=== PATIENT | female | born 1970 | race Caucasian/White ===

== ENCOUNTER 2017-11-28 12:02 | Inpatient (IN) | payer MEDICAID, MEDICARE ==
[~2017-11-28 12:02] MED LIST: BUPIVACAINE HCL 50 ML VIAL IJ ONE; LIDOCAINE HCL 20 ML VIAL IJ ONE
--- NOTE | 2017-11-28 12:37 | ANES ---
Anesthesia Pre Procedure Eval Vitals/Labs: Last Vital Signs Temp 37.2 C 11/28/17 12:00 Pulse 88 11/28/17 12:00 Resp 20 11/28/17 12:00 BP 118/55 11/28/17 12:00 Pulse Ox 99 11/28/17 12:00 HOME MEDICATIONS Sulfamethoxazole/Trimethoprim [Bactrim Ds] 1 tab PO BID #20 tab 11/25/17 [Last Taken 11/27/17] hydrocodone 5 mg-acetaminophen 325 mg tablet 1 tab PO TID-QID PRN #30 tab [Last Taken 11/27/17] atorvastatin 80 mg tablet 80 mg PO DAILY 11/27/17 [Last Taken 11/27/17] buspirone 15 mg tablet 15 mg PO BID 11/27/17 [Last Taken 11/27/17] duloxetine 60 mg capsule,delayed release 60 mg PO BID 11/27/17 [Last Taken 11/14] gabapentin 300 mg capsule 300 mg PO TID 11/27/17 [Last Taken 11/27/17] insulin aspart U-100 100 unit/mL subcutaneous pen 1 unit SUB-Q ACHS ml [Last Taken 11/27/17] insulin detemir (U-100) 100 unit/mL (3 mL) subcutaneous pen 40 unit SUB-Q DAILY 11/27/17 [Last Taken 11/27/17] insulin detemir (U-100) 100 unit/mL (3 mL) subcutaneous pen 60 unit SUB-Q QPM [Last Taken 11/27/17] lisinopril 2.5 mg tablet 2.5 mg PO DAILY 11/27/17 [Last Taken 11/27/17] omeprazole 10 mg capsule,delayed release 10 mg PO DAILY 11/27/17 [Last Taken ] Allergies/Adverse Reactions: Allergies Allergy/AdvReac Type Severity Reaction Status Date / Time cefaclor [From [facility]] Allergy Hives Verified 11/28/17 12:13 - Planned Procedure Medication List Reviewed:: Yes Allergies Verified: Yes Medical History (Last Reviewed 11/28/17 @ 12:36 by Khadar Nava CRNA) Gastroesophageal reflux disease (Chronic) Depression (Chronic) Anxiety (Chronic) History of MA (myocardial infarction) (Resolved) Anemia (Acute) Diabetes (Chronic) Peripheral neuropathy (Chronic) Diabetes 1.5, managed as type 1 History of depression History of hypercholesterolemia Hx of gastroesophageal reflux (GERD) Hx of myocardial infarction Surgical History (Last Reviewed 11/28/17 @ 12:36 by Khadar Nava CRNA) 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 Hx of section Hx of tubal ligation History of bilateral carpal tunnel release (Inactive) Hx of heart artery stent (Inactive) Family History (Last Reviewed 11/28/17 @ 12:36 by Khadar Nava CRNA) Father COPD (chronic obstructive pulmonary disease) Diabetes Heart disease Mother COPD (chronic obstructive pulmonary disease) Diabetes Heart disease - Family Anesthesia History Family History:: no untoward family reactions to anesthesia - Airway/Neck/Teeth Teeth Condition: Intact Denture Type: None Neck Exam: non-tender, full range of motion, normal alignment, normal inspection Mallampatti Score: 2 Thyromental (T-M) distance: > 6 cm Mandibulo Hyoid distance: > 3 cm - Respiratory Respiratory: lungs clear, normal breath sounds, no respiratory distress Smoking Status: Never smoker Sleep Apnea currently treated: No Sleep Apnea by current assessment: No - Cardiovascular Patient History - Cardiac/Respiratory: Myocardial Infarction Tolerates Activity: Fair Heart Sounds: S1 & S2, Regular - Anesthesia Assessment and Plan ASA Class: PS, III Anesthesia Type Plan: MAC Planned difficult intubation/equipment available: No
[2017-11-28] MEDS: RINGER'S SOLUTION,LACTATED 1,000 ML IV PRN ×2 (13:10→15:30)
[2017-11-28] MEDS ORDERED: LIDOCAINE HCL IJ ONE (13:57)
[2017-11-28] MEDS ORDERED: VANCOMYCIN HCL 1 GM in DEXTROSE 5 % IN WATER 250 ML IV ONE ×2 (14:00)
--- NOTE | 2017-11-28 14:54 | ANES ---
Post Anesthesia Discharge - Transfer of Care Transfer of Care handoff given to nurse: Yes - Anesthesia Post Op Note Anesthesia Post Op Note: Care transferred to RN on med-surg
--- NOTE | 2017-11-28 14:55 | ANES ---
Post Anesthesia Assessment - Vital Signs Vitals: Last Vital Signs Temp 37.2 C 11/28/17 12:00 Pulse 88 11/28/17 12:00 Resp 20 11/28/17 12:00 BP 118/55 11/28/17 12:00 Pulse Ox 99 11/28/17 12:00 Airway Patency: Normal - Mental Status Level Of Consciousness: Awake - Pain Level Pain Score: 0 - N/V Assessment Nausea/Vomiting Presence: None Dehydration:: No
[2017-11-28] MEDS: HYDROcodone/ACETAMINOPHEN 1 EACH TABLET PO PRN ×2 (15:47→21:11)
[2017-11-28] MEDS ORDERED: VANCOMYCIN HCL 1 GM in DEXTROSE 5 % IN WATER 250 ML IV SCH ×2 (18:00)
[2017-11-28] MEDS ORDERED: GLUCAGON,HUMAN RECOMBINANT 1 MG VIAL IV PRN (19:17)
[2017-11-28] MEDS ORDERED: INSULIN DETEMIR 100 UNITS/ML VIAL SC SCH (21:00)
[2017-11-28] MEDS ORDERED: GABAPENTIN 300 MG CAPSULE PO SCH (21:00)
[2017-11-28] MEDS: DULoxetine HCL 30 MG CAPSULE.SA PO SCH (21:10)
[2017-11-28] MEDS: busPIRone HCL 5 MG TABLET PO SCH (21:10)
[2017-11-28] MEDS: SACCHAROMYCES BOULARDII 250 MG CAPSULE PO SCH (21:10)
[2017-11-28] MEDS: INSULIN LISPRO 100 UNITS/ML VIAL SC SCH (21:24)
--- NOTE | 2017-11-28 22:19 | HP ---
Chief Complaint - Chief Complaint Date of Service: 11/28/17 Time of Service: 18:00 Chief Complaint: foot infection History of Present Illness: 47 yo female admitted to the med/surg floor for Dr. Ramirez following surgical debridement of her right 5th toe and surrounding tissue for osteomyelitis. Patient has a hx of poorly controlled insulin dependent DM, currently on a long and short acting insulin (she is unsure of her regimen currently). Surgery went well and she states that her pain is well controlled. She is on vanc for MRSA tx (Cultures 5 days ago +). Currently she is comfortable and has no concerns. She is to be here for the next 48 hours for IV abx, she will then be transitioned home or orals after sensitivities return from the cultures. Her VS are stable. 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 Smoking Status Never smoker Have you smoked in the past 12 No months Do you dip or chew tobacco No Review Of Systems (GEN) - Review of Systems Generalized/Overall Review: Present: No Symptoms Reported EENTM: Present: No Symptoms Reported Respiratory: Present: No Symptoms Reported Cardiac: Present: No Symptoms Reported Abdominal: Present: No Symptoms Reported Genitourinary: Present: No Symptoms Reported Musculoskeletal: Present: Other - right foot pain, minimal currently Neurological: Present: No Symptoms Reported Skin: Present: No Symptoms Reported - Unsure if there is a surrounding cellulitis due to wrapping. Endocrine: Present: No Symptoms Reported Immunizations: IMMUNIZATION HX Immunizations Up to Date Yes Allergies/Adverse Reactions: Allergies Allergy/AdvReac Type Severity Reaction Status Date / Time cefaclor [From [facility]] Allergy Hives Verified 11/28/17 12:13 Home Medications: HOME MEDICATIONS Sulfamethoxazole/Trimethoprim [Bactrim Ds] 1 tab PO BID #20 tab 11/25/17 [Last Taken 11/26/17] hydrocodone 5 mg-acetaminophen 325 mg tablet 1 tab PO TID-QID PRN #30 tab [Last Taken Unknown] atorvastatin 80 mg tablet 80 mg PO DAILY 11/27/17 [Last Taken Unknown] buspirone 15 mg tablet 15 mg PO BID 11/27/17 [Last Taken Unknown] duloxetine 60 mg capsule,delayed release 60 mg PO BID 11/27/17 [Last Taken Unknown] gabapentin 300 mg capsule 300 mg PO BID 11/27/17 [Last Taken 11/27/17] insulin aspart U-100 100 unit/mL subcutaneous pen 1 unit SUB-Q ACHS ml [Last Taken Unknown] insulin detemir (U-100) 100 unit/mL (3 mL) subcutaneous pen 40 unit SUB-Q DAILY 11/27/17 [Last Taken Unknown] insulin detemir (U-100) 100 unit/mL (3 mL) subcutaneous pen 60 unit SUB-Q QPM [Last Taken Unknown] lisinopril 2.5 mg tablet 2.5 mg PO DAILY 11/27/17 [Last Taken Unknown] omeprazole 10 mg capsule,delayed release 10 mg PO DAILY 11/27/17 [Last Taken Unknown] Gabapentin 600 mg PO HS 11/28/17 [Last Taken Unknown] Exam - Exam Vital Signs: Vital Signs - Last Taken Temp 36.5 C 11/28/17 15:35 Pulse 86 11/28/17 17:49 Resp 20 11/28/17 17:49 BP 105/53 11/28/17 17:49 Pulse Ox 97 11/28/17 17:49 Constitutional: Present: Alert, Oriented x3, Cooperative Neck: Present: non-tender, supple Back Exam: Present: normal inspection, no CVA tenderness Respiratory: Present: chest non-tender, lungs clear, normal breath sounds, no respiratory distress Cardiovascular/Chest: Present: normal peripheral pulses, regular rate, rhythm, no chest tenderness, edema - right foot to just above her ankle Abdomen: Present: Normal bowel sounds, soft /Rectal: Present: Exam deferred Skin Exam: Present: normal color Appearance: Present: appropriate appearance, appropriate insight Eye contact: Present: cooperative, good eye contact Thoughts: Present: normal thought pattern, normal mood /affect Assessment/Plan - Assessment/Plan (1) Osteomyelitis Assessment: Patient on 1 gr Vanco q 12 hrs. Vanc trough to be ordered 1 hr prior to 4th dose. Awaiting cultures from surgery. SCDs ordered. CBC in the am Problem: Acute Qualifiers: Osteomyelitis location: foot Laterality: right Qualified Code(s): M86.9 - Osteomyelitis, unspecified (2) Insulin dependent diabetes mellitus Assessment: Resume long acting insulin. 10 units short acting insulin with meals, Moderate sliding scale insulin to be given ACHS (with BS monitoring). Moderate sliding scale insulin ordered. Glucagon to be given if BS drops below 50. Doc to be notified if BS drops below 70. Consistent carb diet Problem: Acute (3) Depression Assessment: restart home meds. patient states that it is well controlled Problem: Chronic Qualifiers: Depression Type: major depressive disorder Major depression recurrence: recurrent Active/Remission status: currently active Major depression episode severity: unspecified Qualified Code(s): F33.9 - Major depressive disorder, recurrent, unspecified (4) Anxiety Assessment: restart home meds. patient states that it is well controlled Problem: Chronic (5) Peripheral neuropathy Assessment: restart gabapentin Problem: Chronic Qualifiers: Peripheral neuropathy type: polyneuropathy associated with underlying disease Qualified Code(s): G63 - Polyneuropathy in diseases classified elsewhere
[2017-11-29] MEDS: VANCOMYCIN HCL 1 GM in DEXTROSE 5 % IN WATER 250 ML IV SCH ×4 (05:29→16:35)
[2017-11-29 05:45] LABS: Mean Corpuscular Hemoglobin 25.3 pg (27-31); Mean Corpuscular Hgb Conc 30.2 g/dl (32-36); Mean Platelet Volume 10.1 fl (8-12.5); Neutrophil # 7.1 K/mm3 (1.3-6.0); Neutrophil % 72.3 % (42-75.0); Platelet Count 256 K/mm3 (150-450); Red Blood Count 2.25 M/mm3 (4.2-5.4); Red Cell Distribution Width 15.5 % (11.5-14.0); White Blood Count 9.9 K/mm3 (4.0-10.5)
[2017-11-29 05:54] LABS: Hematocrit 18.9 % (37.0-47.0); Hemoglobin 5.7 gm/dL (12.5-16.0)
[2017-11-29 06:14] LABS: Albumin * 2.3 gm/dl (3.4-5.0); Anion Gap 13.3 mmol/L (6.8-13.8); BUN/Creatinine Ratio 16.7 (9.0-21.6); Bilirubin, Total 0.2 mg/dL (0.0-1.1); Ca. Corrected For Albumin 9.4 mg/dL (8.4-10.2); Calcium * 8.4 mg/dL (7.9-10.9); Carbon Dioxide 25.9 mmol/L (24-32.6); Potassium 3.2 mmol/L (3.4-4.6)
[2017-11-29] MEDS: INSULIN LISPRO 100 UNITS/ML VIAL SC SCH ×4 (08:19→20:54)
[2017-11-29] MEDS: INSULIN DETEMIR 100 UNITS/ML VIAL SC SCH (08:19)
[2017-11-29] MEDS: busPIRone HCL 5 MG TABLET PO SCH ×2 (08:21→20:59)
[2017-11-29] MEDS: GABAPENTIN 300 MG CAPSULE PO SCH ×2 (08:21→12:29)
[2017-11-29] MEDS: DULoxetine HCL 30 MG CAPSULE.SA PO SCH ×2 (08:21→21:00)
[2017-11-29] MEDS: SACCHAROMYCES BOULARDII 250 MG CAPSULE PO SCH ×2 (08:21→21:00)
[2017-11-29] MEDS: LISINOPRIL 2.5 MG TABLET PO SCH (08:22)
[2017-11-29] MEDS ORDERED: ROSUVASTATIN CALCIUM 20 MG TABLET PO SCH ×2 (09:00→21:00)
--- NOTE | 2017-11-29 10:17 | PN ---
Subjective - Date and Time Seen Date: 11/29/17 Time: 06:59 Subjective Narrative: Patient feels well, states her pain is well controlled. She denies fever/ chills. She denies CP, SOB, dizziness, vision changes. She had a critical lab come back with a hemoglobin of 5.7. Planning on transfusing her now. Objective Objective Narrative: VSS throughout the night. - Review of Systems Generalized/Overall Review: Reports: No Symptoms Reported EENTM: Reports: No Symptoms Reported Respiratory: Reports: No Symptoms Reported Cardiac: Reports: No Symptoms Reported Abdominal: Reports: No Symptoms Reported Musculoskeletal Complaints: Reports: Other - R foot pain following surgery - Vitals Vitals: Last Vital Signs Temp 37.2 C 11/29/17 08:33 Pulse 84 11/29/17 08:33 Resp 20 11/29/17 08:33 BP 123/62 11/29/17 08:33 Pulse Ox 100 11/29/17 08:33 - Abnormal Lab Findings Abnormal Lab Findings: Abnormal Lab Results 11/29/17 11/29/17 11/29/17 Range/Units 05:30 05:30 06:00 RBC 2.25 L (4.2-5.4) M/mm3 Hgb 5.7 L* (12.5-16.0) gm/dL Hct 18.9 L* (37.0-47.0) % MCH 25.3 L (27-31) pg MCHC 30.2 L (32-36) g/dl RDW 15.5 H (11.5-14.0) % Immature Gran % (Auto) 1.10 H (0.001-0.429) % Immature Gran # (Auto) 0.11 H (0.000-0.0310) K/mm3 Lymphocytes % 19.4 L (20-51) % Neutrophils # 7.1 H (1.3-6.0) K/mm3 Potassium 3.2 L (3.4-4.6) mmol/L Random Glucose 61 L D (70-110) mg/dL Albumin 2.3 L (3.4-5.0) gm/dl Crossmatch See Detail - Exam Constitutional: Present: Alert, Oriented x3 Neck: Present: non-tender, supple Breasts: Present: Exam deferred Respiratory: Present: chest non-tender, lungs clear, normal breath sounds Cardiovascular/Chest: Present: normal peripheral pulses, regular rate, rhythm Abdomen: Present: Normal bowel sounds, soft, nontender /Rectal: Present: Exam deferred Extremity: Present: normal range of motion, lower extremity edema - Right lower extremity, leg pain - Right lower extremity. Absent: normal inspection - no inspection of foot, dressing are clean and dry. No changes to the dressing Skin Exam: Present: normal color, warm/dry Appearance: Present: appropriate appearance, appropriate insight Eye contact: Present: cooperative, good eye contact Thoughts: Present: normal thought pattern, normal mood /affect Assessment/Plan - Problems/Diagnosis (1) Osteomyelitis Problem: Acute Qualifiers: Osteomyelitis location: foot Laterality: right Qualified Code(s): M86.9 - Osteomyelitis, unspecified Narrative: Continue vanc as ordered. Awaiting cultures, will transition to PO meds once they return. Vanc trough ordered (2) Anemia Problem: Acute Qualifiers: Anemia type: other cause Narrative: Patient type and crossed. 2 units PRBC ordered to be tranfused now. Will recheck an H/H once completed. She is asymptomatic. (3) Insulin dependent diabetes mellitus Problem: Acute Narrative: Restarted her home medications with sliding scale. Will monitor her sugars. Appetite normal, she is tolerating PO well. (4) Depression Problem: Chronic Qualifiers: Depression Type: major depressive disorder Major depression recurrence: recurrent Active/Remission status: currently active Major depression episode severity: unspecified Qualified Code(s): F33.9 - Major depressive disorder, recurrent, unspecified Narrative: home meds restarted (5) Anxiety Problem: Chronic Narrative: restarted home meds (6) Peripheral neuropathy Problem: Chronic Qualifiers: Peripheral neuropathy type: polyneuropathy associated with underlying disease Qualified Code(s): G63 - Polyneuropathy in diseases classified elsewhere Narrative: restarted home meds (7) Hypokalemia Problem: Acute Narrative: will replace
[2017-11-29] MEDS: POTASSIUM CHLORIDE 20 MEQ TABLET.SA PO SCH (10:50)
--- NOTE | 2017-11-29 11:05 | PN ---
Subjective - Date and Time Seen Date: 11/29/17 Time: 10:51 Subjective Narrative: Pt evaluated in bedside chair resting. States that she is feeling much better today. Has an appetite back and is able to hold food down. Ate a good breakfast this morning. Relates little pain from her right foot following surgery. Pain is being well controlled with current medications along with resting and elevating. She is being transfused 2 units of blood due to low Hbg. She continues to tolerate her IV ABX. Dressing has remained CDI. She is wearing postoperative shoe as instructed. She is POD #1 following partial 5th ray amputation and debridement of ulcerations of the right foot. Objective - Review of Systems Generalized/Overall Review: Reports: Fatigue. Denies: Chills, Fever, Malaise Respiratory: Denies: Cough, Shortness of Breath Abdominal: Denies: Nausea, Vomiting, Constipation, Diarrhea Musculoskeletal Complaints: Reports: Other - right foot pain - minimal Neurological: Reports: Numbness Skin: Reports: Other - ulcerations right foot - Vitals Vitals: Last Vital Signs Temp 37.1 C 11/29/17 10:47 Pulse 80 11/29/17 10:47 Resp 18 11/29/17 10:47 BP 141/75 H 11/29/17 10:47 Pulse Ox 100 11/29/17 10:47 - Abnormal Lab Findings Abnormal Lab Findings: Abnormal Lab Results 11/29/17 11/29/17 11/29/17 Range/Units 05:30 05:30 06:00 RBC 2.25 L (4.2-5.4) M/mm3 Hgb 5.7 L* (12.5-16.0) gm/dL Hct 18.9 L* (37.0-47.0) % MCH 25.3 L (27-31) pg MCHC 30.2 L (32-36) g/dl RDW 15.5 H (11.5-14.0) % Immature Gran % (Auto) 1.10 H (0.001-0.429) % Immature Gran # (Auto) 0.11 H (0.000-0.0310) K/mm3 Lymphocytes % 19.4 L (20-51) % Neutrophils # 7.1 H (1.3-6.0) K/mm3 Potassium 3.2 L (3.4-4.6) mmol/L Random Glucose 61 L D (70-110) mg/dL Albumin 2.3 L (3.4-5.0) gm/dl Crossmatch See Detail - Exam Constitutional: Present: Alert, Oriented x3, Cooperative, No distress Cardiovascular/Chest: Present: normal peripheral pulses Extremity: Present: other - minimal right foot pain about incision sites medial and lateral foot Skin Exam: Present: other - Dressing to right foot CDI with moderate bloody drainage following surgery. Incision to the dorsal lateral foot at amputation site of 5th ray well approximated with sutures intact proximal and distal. Central aspect remains open with packing in place. Upon removal, tissues appear red, granular. There is no longer any purulent drainage expressed, serosanguinous drainage only. Incision to the medial foot at 1st metatarsal head well approximated with sutures intact proximal and distal with central aspect remaining open with packing in place. Upon removal, tissues red, granular. No purulence expressed, only serosanguinous fluid present. Ulcerations to plantar 1st and 5th metatarsal heads remain, however appear to be slightly improved following surgery with red, healthy granulation tissue present, minimal serosanguinous drainage. Erythema present only about the surgical sites, remaining erythema has resolved. Skin temperature to foot similar to that of lower leg. Neurologic: Present: sensory deficit Appearance: Present: appropriate appearance Eye contact: Present: cooperative Assessment/Plan - Problems/Diagnosis (1) Cellulitis and abscess of foot Problem: Acute Narrative: Improved following surgical debridement and addition of IV ABX. Will continue IV ABX at this time. Plan switch to oral ABX upon d/c home. Plan d/c home tomorrow evening. (2) Osteomyelitis Problem: Acute Qualifiers: Osteomyelitis location: foot Laterality: right Qualified Code(s): M86.9 - Osteomyelitis, unspecified Narrative: S/p partial 5th ray amputation and surgical debridement of ulceration of the right foot. Progressing well following surgery. Foot already showing significant improvement. Packing removed and replaced today. New DSD applied. Keep CDI. I will change dressings at this time. Continue in surgical shoe with all weightbearing activities. Elevate foot at rest. Continue current medications for pain. Likely d/c home tomorrow evening. Plan f/u in wound center on 12/02/17. (3) Insulin dependent diabetes mellitus Problem: Acute Narrative: Continue care per PCP. (4) Anemia Problem: Acute Qualifiers: Anemia type: other cause Narrative: Continue care per PCP.
[2017-11-29] MEDS ORDERED: SIMETHICONE 80 MG TAB.CHEW PO PRN (16:50)
[2017-11-29] MEDS ORDERED: INSULIN DETEMIR 100 UNITS/ML VIAL SC SCH ×2 (17:00→21:00)
[2017-11-29] MEDS ORDERED: GABAPENTIN 600 MG TABLET PO SCH (21:00)
[2017-11-30 04:02] LABS: Hematocrit 26.3 % (37.0-47.0); Hemoglobin 8.4 gm/dL (12.5-16.0); Mean Cell Volume 84.6 fl (78-100); Mean Corpuscular Hgb Conc 31.9 g/dl (32-36); Mean Platelet Volume 9.9 fl (8-12.5); Neutrophil # 5.8 K/mm3 (1.3-6.0); Neutrophil % 68.3 % (42-75.0); Platelet Count 270 K/mm3 (150-450); Red Blood Count 3.11 M/mm3 (4.2-5.4); Red Cell Distribution Width 15.3 % (11.5-14.0); White Blood Count 8.5 K/mm3 (4.0-10.5)
[2017-11-30] MEDS: VANCOMYCIN HCL 1 GM in DEXTROSE 5 % IN WATER 250 ML IV SCH ×2 (04:53)
[2017-11-30] MEDS: INSULIN LISPRO 100 UNITS/ML VIAL SC SCH ×2 (07:30→11:47)
[2017-11-30] MEDS: busPIRone HCL 5 MG TABLET PO SCH (08:40)
[2017-11-30] MEDS: POTASSIUM CHLORIDE 20 MEQ TABLET.SA PO SCH (08:40)
[2017-11-30] MEDS: INSULIN DETEMIR 100 UNITS/ML VIAL SC SCH (08:40)
[2017-11-30] MEDS: SACCHAROMYCES BOULARDII 250 MG CAPSULE PO SCH (08:40)
[2017-11-30] MEDS: DULoxetine HCL 30 MG CAPSULE.SA PO SCH (08:40)
[2017-11-30] MEDS: LISINOPRIL 2.5 MG TABLET PO SCH (08:41)
[2017-11-30] MEDS: GABAPENTIN 300 MG CAPSULE PO SCH ×2 (08:41→11:48)
--- NOTE | 2017-11-30 13:09 | PN ---
Subjective - Date and Time Seen Date: 11/30/17 Time: 12:59 Subjective Narrative: Pt evaluated in bedside chair resting. States that she feels great today. Relates very little pain from her right foot following surgery. Pain is being well controlled with current medications along with resting and elevating. She continues to tolerate her IV ABX. Dressing has remained CDI. She is wearing postoperative shoe as instructed. She is POD #2 following partial 5th ray amputation and debridement of ulcerations of the right foot. Objective - Review of Systems Generalized/Overall Review: Denies: Chills, Fever, Malaise Respiratory: Denies: Shortness of Breath Cardiac: Denies: Chest Pain Abdominal: Denies: Nausea, Vomiting, Constipation, Diarrhea Musculoskeletal Complaints: Reports: Other - right foot pain - minimal Neurological: Reports: Numbness Skin: Reports: Other - ulcerations right foot - Vitals Vitals: Last Vital Signs Temp 36.2 C 11/30/17 07:00 Pulse 88 11/30/17 08:41 Resp 20 11/30/17 07:00 BP 126/60 11/30/17 08:41 Pulse Ox 94 11/30/17 07:00 - Abnormal Lab Findings Abnormal Lab Findings: Abnormal Lab Results 11/29/17 11/29/17 11/30/17 Range/Units 06:00 15:28 02:45 RBC (4.2-5.4) M/mm3 Hgb 7.9 L* D (12.5-16.0) gm/dL Hct (37.0-47.0) % MCHC (32-36) g/dl RDW (11.5-14.0) % Immature Gran % (Auto) (0.001-0.429) % Immature Gran # (Auto) (0.000-0.0310) K/mm3 Lymphocytes % (20-51) % Random Glucose 45 L (70-110) mg/dL Vancomycin Trough (10.0-20.0) mcg/mL Crossmatch See Detail 11/30/17 11/30/17 Range/Units 03:55 05:00 RBC 3.11 L (4.2-5.4) M/mm3 Hgb 8.4 L (12.5-16.0) gm/dL Hct 26.3 L (37.0-47.0) % MCHC 31.9 L (32-36) g/dl RDW 15.3 H (11.5-14.0) % Immature Gran % (Auto) 2.10 H (0.001-0.429) % Immature Gran # (Auto) 0.18 H (0.000-0.0310) K/mm3 Lymphocytes % 19.6 L (20-51) % Random Glucose (70-110) mg/dL Vancomycin Trough 8.4 L (10.0-20.0) mcg/mL Crossmatch - Exam Constitutional: Present: Alert, Oriented x3, Cooperative, No distress Cardiovascular/Chest: Present: normal peripheral pulses Extremity: Present: other - right foot pain - minimal, improving Skin Exam: Present: other - Dressing to right foot CDI with minimal serosanguinous drainage from surgical sites. Incisions x2 to right foot, medial and lateral, both well approximated with sutures intact proximal and distal. Central aspects remain open with packing in place. Upon removal of packing, tissues are red, granular. There remains minimal-moderate serosanguinous drainage. Purulence remains resolved. Surrounding tissue pink, intact. Erythema has resolved. Skin lines well visualized as swelling has reduced. Skin with some peeling with reduction in swelling. Ulcerations to plantar 1st and 5th met heads remain, however have reduced in size following surgery, no longer able to probe to bone. Neurologic: Present: sensory deficit Appearance: Present: appropriate appearance Eye contact: Present: cooperative Assessment/Plan - Problems/Diagnosis (1) Cellulitis and abscess of foot Problem: Acute Narrative: Pt has progressed very well following IV ABX and surgical debridement. Will plan for d/c home today on oral ABX per PCP. (2) Osteomyelitis Problem: Acute Qualifiers: Osteomyelitis location: foot Laterality: right Qualified Code(s): M86.9 - Osteomyelitis, unspecified Narrative: Incisions healing as expected following surgical debridement and partial 5th ray amputation. Packing removed and replaced today both medial and lateral incisions. New DSD applied. Quynh CDI. Plan for f/u in wound center on Friday , 12:45 pm. Continue in surgical shoe for all weighbearing activities. Elevate extremity as much as possible. Advised that she is still at risk of developing severe infection with surgical sites remaining open with packing. It is vital that she keep this dressing clean and dry and she try to stay off of her foot as much as possible. Educated on worsening SOI and she is to seek medical attention immediately should any develop. States understanding. (3) Insulin dependent diabetes mellitus Problem: Acute Narrative: Continue care per PCP. (4) Anemia Problem: Acute Qualifiers: Anemia type: other cause Narrative: Continue care per PCP.
--- NOTE | 2017-11-30 13:15 | DS ---
(1) Osteomyelitis Problem: Acute Qualifiers: Osteomyelitis location: foot Laterality: right (2) Anemia Problem: Acute Qualifiers: Anemia type: other cause (3) Insulin dependent diabetes mellitus Problem: Chronic (4) Depression Problem: Chronic Qualifiers: Depression Type: major depressive disorder Major depression recurrence: recurrent Active/Remission status: currently active Major depression episode severity: unspecified Qualified Code(s): F33.9 - Major depressive disorder, recurrent, unspecified (5) Anxiety Problem: Chronic (6) Peripheral neuropathy Problem: Chronic Qualifiers: Peripheral neuropathy type: polyneuropathy associated with underlying disease Qualified Code(s): G63 - Polyneuropathy in diseases classified elsewhere (7) Hypokalemia Problem: Resolved Description of Stay: 47 yo F admitted following partial 5th ray amputation of R foot due to osteomyelitis. Surgery went well, no complications. She was started on vancomycin due to a positive MRSA culture in the ER. Post surgical hemoglobin was 5.7, she was transfused 2 units and this brought her up to 8.4 at time of discharge. Recommend that she start iron therapy after completing abx, she will discuss this with Leah Guerin. Her VS were stable during her stay. Surgical culture was negative for growth. Her vanc trough came back at 8.4 but this was stopped due to culture. Patient will be sent out on clincamycin for another 7 days. She has pain medication at home already from Dr. Ramirez. Her other co-morbidities were well controlled. She was started on her home regimen of Insulin, she did have a couple low blood sugar readings that were quickly resolved. This is likely due to her diet being better controlled while here in the hospital. She is advised to follow up with Leah Guerin in the next 7 days to go over her insulin regimen, she states that her A1c is low 7s while on this so I will not be adjusting it while here. We continued her other chronic medications, no changes were made to those. Procedures Performed: none Results and Findings: Pending Mircobiology Results 11/28/17 13:50 Foot - Right Surgical Culture - Preliminary Gram Negative Bacilli Staphylococcus Species Lab Pending Results 11/29/17 05:30: WBC 9.9 D, RBC 2.25 L, Hgb 5.7 L*, Hct 18.9 L*, MCV 84.0, MCH 25.3 L, MCHC 30.2 L, RDW 15.5 H, Plt Count 256, MPV 10.1, Immature Gran % (Auto ) 1.10 H, Immature Gran # (Auto) 0.11 H, Neutrophils % 72.3, Lymphocytes % 19.4 L, Monocytes % 6.1, Eosinophils % 0.9, Basophils % 0.2, Nucleated RBC % 0.0, Neutrophils # 7.1 H, Lymphocytes # 1.91, Monocytes # 0.6, Eosinophils # 0.1, Absolute Basophils 0.0 11/29/17 05:30: Sodium 138, Plasma Sodium 137, Potassium 3.2 L, Chloride 102, Carbon Dioxide 25.9, Anion Gap 13.3, BUN 15, Creatinine 0.90, Est GFR (Non-Af Amer) 72 D, BUN/Creatinine Ratio 16.7, Random Glucose 61 L D, Calcium 8.4, Calcium Adj for Albumin 9.4, Total Bilirubin 0.2, AST 23, ALT 19, Alkaline Phosphatase 99, Total Protein 8.0, Albumin 2.3 L 11/29/17 06:00: Blood Type O Positive, Antibody Screen Negative, Crossmatch See Detail 11/29/17 15:28: Hgb 7.9 L* D 11/30/17 02:45: Random Glucose 45 L 11/30/17 03:55: Vancomycin Trough 8.4 L 11/30/17 05:00: WBC 8.5, RBC 3.11 L, Hgb 8.4 L, Hct 26.3 L, MCV 84.6, MCH 27.0, MCHC 31.9 L, RDW 15.3 H, Plt Count 270, MPV 9.9, Immature Gran % (Auto) 2.10 H, Immature Gran # (Auto) 0.18 H, Neutrophils % 68.3, Lymphocytes % 19.6 L, Monocytes % 7.3, Eosinophils % 2.1, Basophils % 0.6, Nucleated RBC % 0.0, Neutrophils # 5.8, Lymphocytes # 1.67, Monocytes # 0.6, Eosinophils # 0.2, Absolute Basophils 0.1 Discharge Location: Home Disposition: Home self-care Condition: Good Discharge Activity: Activity as tolerated Discharge Diet: Consistent carbs Referrals: Leah Aleman FNP [Primary Care Provider] - One Week Additional Patient Instructions (free text): [facility] scheduled for FridayDecember 02. Please check in at 12:45. Complete Home Medications List: Complete Home Medication List: Sulfamethoxazole/Trimethoprim [Bactrim Ds] 1 tab PO BID #20 tab 11/25/17 hydrocodone 5 mg-acetaminophen 325 mg tablet 1 tab PO TID-QID PRN #30 tab atorvastatin 80 mg tablet 80 mg PO DAILY 11/27/17 buspirone 15 mg tablet 15 mg PO BID 11/27/17 duloxetine 60 mg capsule,delayed release 60 mg PO BID 11/27/17 gabapentin 300 mg capsule 300 mg PO BID 11/27/17 insulin aspart U-100 100 unit/mL subcutaneous pen 1 unit SUB-Q ACHS ml insulin detemir (U-100) 100 unit/mL (3 mL) subcutaneous pen 40 unit SUB-Q DAILY 11/27/17 insulin detemir (U-100) 100 unit/mL (3 mL) subcutaneous pen 60 unit SUB-Q QPM lisinopril 2.5 mg tablet 2.5 mg PO DAILY 11/27/17 omeprazole 10 mg capsule,delayed release 10 mg PO DAILY 11/27/17 Gabapentin 600 mg PO HS 11/28/17
[2017-11-30] MEDS: VANCOMYCIN HCL 1.25 GM in DEXTROSE 5 % IN WATER 250 ML IV SCH ×4 (15:12→15:23)
[2017-11-30 16:53] VITALS: BP 146/66
== END 2017-11-30 17:04 | disposition home or self-care (01) | DRG 464 ==
LOC: SUR 12:02 → MS 14:58
PROVIDERS: ADMIT Family Medicine; ATTEND Family Medicine
CPT/HCPCS: 36415; 71020; 71046; 80053; 80202; 82607; 82728; 82947; 83036; 83540; 83550; 84132; 85018; 85025; 86850; 86900; 87070; 87077; 87081; 87186; 93005; 99214; P9016

== ENCOUNTER 2018-01-29 21:10 | Inpatient (IN) | payer MEDICAID, MEDICARE ==
--- NOTE | 2018-01-29 21:23 | ERNOTE ---
<Lyn Madison - Last Filed: 01/29/18 22:21> Integumentary HPI - Narrative Date of Service: 01/29/18 - General Time Seen by Provider: 01/29/18 21:13 Source: patient Exam Limitations: no limitations - Immun/Allergies/Home Medications Immunizations: IMMUNIZATION HX Immunizations Up to Date Yes Allergies/Adverse Reactions: Allergies Allergy/AdvReac Type Severity Reaction Status Date / Time cefaclor [From [facility]] Allergy Hives Verified 01/29/18 21:17 Home Medications: HOME MEDICATIONS Sulfamethoxazole/Trimethoprim [Bactrim Ds] 1 tab PO BID #20 tab 11/25/17 [Last Taken 11/26/17] hydrocodone 5 mg-acetaminophen 325 mg tablet 1 tab PO TID-QID PRN #30 tab 11/26/17 [Last Taken Unknown] atorvastatin 80 mg tablet 80 mg PO DAILY 11/27/17 [Last Taken Unknown] gabapentin 300 mg capsule 300 mg PO BID 11/27/17 [Last Taken 11/27/17] lisinopril 2.5 mg tablet 2.5 mg PO DAILY 11/27/17 [Last Taken Unknown] Gabapentin 600 mg PO HS 11/28/17 [Last Taken Unknown] buspirone 15 mg tablet 15 mg PO BID #60 tab 12/08/17 [Last Taken Unknown] duloxetine 60 mg capsule,delayed release 60 mg PO BID #60 cap 12/08/17 [Last Taken Unknown] ferrous fumarate 325 mg (106 mg iron) tablet 325 mg PO TID #45 tab 12/08/17 [Last Taken Unknown] insulin aspart U- 100 100 unit/mL subcutaneous pen 1 unit SUB-Q ACHS #15 ml 12/08/17 [Last Taken Unknown] insulin detemir (U-100) 100 unit/mL (3 mL) subcutaneous pen See Rx Instructions SUB-Q DAILY #15 ml 12/09/17 [Last Taken Unknown] Ciprofloxacin HCl 500 mg PO BID 01/29/18 [Last Taken Unknown] - Pain Pain Score: 6 - History of Present Illness Narrative: The patient is a 47 year old female who presents for left ankle edema and redness which has been present for 2 days with worsening symptoms this afternoon. There are associated symptoms of chills, fatigue and decreased appetite. The patient reports pain to left lateral and medial ankle, 08/17. There are no alleviating factors. There are aggravating factors of activity. Previous treatments have included: patient is currently taking Cipro and Bactrim for presumed cellulitis. The past medical history includes: DM, HI, GERD, depression, anemia and anxiety. The social history is positive for current smoking. The patient has had no ill contacts. Patient was seen 2 days ago by and antibiotics initiated due to edema and erythema to medial and lateral ankle as well as dorsal foot with presumed cellulitis vs gout. Patient states last evening she noted flat blistering and since this afternoon have become larger and appear to be filled with purulent fluid. Location: Reports: lower extremity Review of Systems - Review of Systems Constitutional: Present: chills, fatigue EYE: Present: no symptoms reported ENT: Absent: ear pain, nasal drainage, sore throat Respiratory: Present: shortness of breath, cough Cardiology: Present: chest pain Gastrointestinal/Abdominal: Present: nausea. Absent: vomiting, diarrhea, abdominal pain Genitourinary: Present: frequency. Absent: dysuria, decreased urinary output Musculoskeletal: Present: joint pain - left circumferential ankle, joint swelling - left ankle Skin: Present: change in color - erythema Neurological: Present: no symptoms reported Endocrine: Present: no symptoms reported Hematologic/Lymphatic: Present: no symptoms reported Psych: Present: no symptoms reported All Other Systems: All systems neg except as marked Medical History (Last Reviewed 01/29/18 @ 21:43 by JOI Jones) Gastroesophageal reflux disease (Chronic) Depression (Chronic) Anxiety (Chronic) History of [place] (myocardial infarction) (Resolved) Anemia (Acute) Diabetes (Chronic) Peripheral neuropathy (Chronic) Diabetes 1.5, managed as type 1 History of depression History of hypercholesterolemia Hx of gastroesophageal reflux (GERD) Hx of myocardial infarction Surgical History: Surgical History (Last Reviewed 01/29/18 @ 21:43 by JOI Jones) 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 Hx of section Hx of tubal ligation History of bilateral carpal tunnel release (Inactive) Hx of heart artery stent (Inactive) Family History: Family History (Last Reviewed 01/29/18 @ 21:43 by JOI Jones) Father COPD (chronic obstructive pulmonary disease) Diabetes Heart disease Mother COPD (chronic obstructive pulmonary disease) Diabetes Heart disease Social History: Preferred Language Mohawk Smoking Status Current every day smoker Alcohol Use none Drug Use none (Last Updated 12/22/17 @ 16:42 by Phill Stout DO) No Social History Section defined Physical Exam - Physical Exam General Appearance: Present: wd/wn, alert, no apparent distress Head Exam: Present: normal inspection Neck: Present: normal inspection Respiratory: Present: no respiratory distress, normal breath sounds, lungs clear Cardiovascular/Chest: Present: tachycardia, systolic murmur Peripheral Pulses: N=norm/S=strong/W=weak/B=bound/A=absent: Dorsalis-pedis (L): Normal Gastrointestinal/Abdominal: Present: normal bowel sounds, nontender, nondistended, soft, no organomegaly Extremity Exam: Present: decreased range of motion - pain with plantar and dorsiflexion of left ankle, joint redness - erythema noted to medial, posterior and lateral ankle, other - purulent filled blister to lateral and medial ankle approximately 2cm x 4cm and lateral ankle 1cm x 3cm Neurological Exam: Present: alert, oriented, normal mood/affect Skin Exam: Present: normal color, warm/dry ED Progress - Date and Time Seen: Date and Time: 01/29/18 21:41 IV bolus figured using IBW, 1,629ml. - Results and Orders Patient's Lab Results:: I have reviewed the patient's lab results. - Vital Signs Patient's Vital Signs:: I have reviewed the patient's vital signs. Vital Signs: Vital Signs 01/29/18 21:14 Temperature 38.0 C Pulse Rate 109 H Respiratory Rate 12 Blood Pressure 120/56 O2 Sat by Pulse Oximetry 95 - EKG EKG: NSR - tachycardia - Progress/Reassessment Chief Complaint: Cellulitis - Transfer of Care Physician Sign Out: Lyn Madison Brief History: worsening cellulitis to Left ankle, anemia Receiving Physician: Keith Hairston Pending Results: X-ray results Expected Disposition: Admit Additional Notes: Discussed presumptive admission with for report prior to sign off to , remained awaiting xray and remaining lab results. to notify of remaining pending tests prior to discharge. Departure Clinical Impression: Acute hyperglycemia, Hyperosmolar non-ketotic state in patient with type 2 diabetes mellitus, Hyponatremia with decreased serum osmolality Anemia Qualifiers: Anemia type: unspecified type Qualified Code(s): D64.9 - Anemia, unspecified Cellulitis Qualifiers: Site of cellulitis: extremity Site of cellulitis of extremity: lower extremity Laterality: left Qualified Code(s): L03.116 - Cellulitis of left lower limb - Departure Disposition: Still a patient Condition: Stable <Keith Hairston - Last Filed: 01/29/18 22:50> Integumentary HPI - Immun/Allergies/Home Medications Immunizations: IMMUNIZATION HX Immunizations Up to Date Yes Medical History (Last Reviewed 01/29/18 @ 21:43 by JOI Jones) Gastroesophageal reflux disease (Chronic) Depression (Chronic) Anxiety (Chronic) History of [place] (myocardial infarction) (Resolved) Anemia (Acute) Diabetes (Chronic) Peripheral neuropathy (Chronic) Diabetes 1.5, managed as type 1 History of depression History of hypercholesterolemia Hx of gastroesophageal reflux (GERD) Hx of myocardial infarction Surgical History: Surgical History (Last Reviewed 01/29/18 @ 21:43 by JOI Jones) 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 Hx of section Hx of tubal ligation History of bilateral carpal tunnel release (Inactive) Hx of heart artery stent (Inactive) Family History: Family History (Last Reviewed 01/29/18 @ 21:43 by JOI Jones) Father COPD (chronic obstructive pulmonary disease) Diabetes Heart disease Mother COPD (chronic obstructive pulmonary disease) Diabetes Heart disease Social History: Preferred Language Mohawk Smoking Status Current every day smoker Alcohol Use none Drug Use none (Last Updated 12/22/17 @ 16:42 by Phill Stout DO) No Social History Section defined ED Progress - Vital Signs Vital Signs: Vital Signs 01/29/18 21:14 01/29/18 21:36 01/29/18 22:05 Temperature 38.0 C 38.3 C H Pulse Rate 109 H 105 H 105 H Respiratory Rate 12 15 15 Blood Pressure 120/56 104/51 99/54 O2 Sat by Pulse Oximetry 95 95 97 - Progress/Reassessment Progress Note-Subjective: 01/29/18 22:48 I took over from this patient from Lyn who presented a 47-year-old female with left leg cellulitis with failed outpatient treatment. As this patient with Dr. Bowen hospitalist. Blood work reviewed consistent with mild leukocytosis. Patient hemoglobin is 7.6 in addition sodium is 128 and glucose is 400+. But no ketones noted. Vital signs reviewed with sepsis criteria met. Patient was started on IV fluid. She was also started on vancomycin and clindamycin. Because of anemia orders were written for blood transfusion. Given 10 units of regular insulin. Patient will be transitioned upstairs for further management. I discussed this patient with Dr. Bowen
[2018-01-29] MEDS ORDERED: VANCOMYCIN HCL 1 GM in DEXTROSE 5 % IN WATER 250 ML IV ONE ×2 (21:56)
[2018-01-29] MEDS ORDERED: CLINDAMYCIN PHOSPHATE 600 MG in DEXTROSE 5 % IN WATER 100 ML IV ONE ×2 (21:57)
[2018-01-29 22:02] LABS: Hematocrit 25.3 % (37.0-47.0); Mean Cell Volume 87.5 fl (78-100); Mean Corpuscular Hemoglobin 26.3 pg (27-31); Mean Platelet Volume 9.2 fl (8-12.5); Neutrophil # 9.8 K/mm3 (1.3-6.0); Neutrophil % 76.9 % (42-75.0); Platelet Count 459 K/mm3 (150-450); Red Blood Count 2.89 M/mm3 (4.2-5.4); Red Cell Distribution Width 15.8 % (11.5-14.0); White Blood Count 12.7 K/mm3 (4.0-10.5)
[2018-01-29 22:13] LABS: Hemoglobin 7.6 gm/dL (12.5-16.0); Troponin I Less than 0.017 ng/mL (0.00-0.10)
[2018-01-29 22:15] LABS: ALT 11 U/L (19-67); AST 11 U/L (0-48); Albumin * 2.2 gm/dl (3.4-5.0); Alkaline Phosphatase * 138 U/L (50-170); BUN/Creatinine Ratio 11.1 (9.0-21.6); Bilirubin, Total 0.3 mg/dL (0.0-1.1); Blood Urea Nitrogen 15 mg/dL (3-23); CRP 16.8 mg/dL (0.0-0.9); Ca. Corrected For Albumin 9.9 mg/dL (8.4-10.2); Calcium * 8.8 mg/dL (7.9-10.9); Carbon Dioxide 26.7 mmol/L (24-32.6); Chloride 95 mmol/L (97-106); Glucose * 454 mg/dL (70-110); Potassium 4.7 mmol/L (3.4-4.6); Sodium 128 mmol/L (132-142)
[2018-01-29] MEDS: SODIUM CHLORIDE IV ONE ×2 (22:18→23:20)
[2018-01-29] MEDS ORDERED: INSULIN REGULAR, HUMAN 100 UNITS/ML VIAL IV ONE (22:20)
[2018-01-30 10:24] LABS: Hematocrit 25.9 % (37.0-47.0); Hemoglobin 8.1 gm/dL (12.5-16.0); Mean Cell Volume 86.3 fl (78-100); Mean Corpuscular Hgb Conc 31.3 g/dl (32-36); Mean Platelet Volume 9.1 fl (8-12.5); Neutrophil # 8.7 K/mm3 (1.3-6.0); Neutrophil % 78.8 % (42-75.0); Platelet Count 319 K/mm3 (150-450); Red Cell Distribution Width 15.1 % (11.5-14.0); White Blood Count 11.1 K/mm3 (4.0-10.5)
--- NOTE | 2018-01-30 10:32 | HP ---
Chief Complaint - Chief Complaint Date of Service: 01/30/18 Time of Service: 10:29 Chief Complaint: Left ankle swelling, redness, pain, abscess History of Present Illness: Krystyna is a 47 yo female seen through the wound clinic for chronic diabetic foot ulcers. She has recently been treated for a ulcer with fistula tract on right foot. However in the past week she has had worsening swelling and erythema of left foot at the ankle. She was started on Bactrim and Cipro and has been on these for outpatient treatment. She presented to the ER today as pain, redness, swelling have all worsened and she now has blister formation on medial and lateral aspect of left ankle. She reports feeling chills and nausea. 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 Smoking Status Never smoker Have you smoked in the past 12 No months Alcohol Use none Drug Use none (Last Updated 12/22/17 @ 16:42 by Phill Stout DO) No Social History Section defined Review Of Systems (GEN) - Review of Systems Generalized/Overall Review: Present: Chills, Fatigue EENTM: Present: No Symptoms Reported Respiratory: Absent: Cough, Shortness of Breath Cardiac: Absent: Chest Pain, Palpitations Abdominal: Present: Nausea. Absent: Vomiting, Abdominal Pain Genitourinary: Present: No Symptoms Reported Musculoskeletal: Present: Joint Pain, Joint Swelling Neurological: Present: No Symptoms Reported Skin: Present: Change in Color, Other - blister formation on left ankle Endocrine: Present: No Symptoms Reported Immunizations: IMMUNIZATION HX Immunizations Up to Date Yes Allergies/Adverse Reactions: Allergies Allergy/AdvReac Type Severity Reaction Status Date / Time cefaclor [From [facility]] Allergy Hives Verified 01/29/18 23:57 Home Medications: HOME MEDICATIONS Sulfamethoxazole/Trimethoprim [Bactrim Ds] 1 tab PO BID #20 tab 11/25/17 [Last Taken 11/26/17] hydrocodone 5 mg-acetaminophen 325 mg tablet 1 tab PO TID-QID PRN #30 tab 11/26/17 [Last Taken Unknown] atorvastatin 80 mg tablet 80 mg PO DAILY 11/27/17 [Last Taken Unknown] gabapentin 300 mg capsule 300 mg PO BID 11/27/17 [Last Taken 11/27/17] lisinopril 2.5 mg tablet 2.5 mg PO DAILY 11/27/17 [Last Taken Unknown] Gabapentin [Neurontin] 600 mg PO HS #0 11/28/17 [Last Taken Unknown] buspirone 15 mg tablet 15 mg PO BID #60 tab 12/08/17 [Last Taken Unknown] duloxetine 60 mg capsule,delayed release 60 mg PO BID #60 cap 12/08/17 [Last Taken Unknown] ferrous fumarate 325 mg (106 mg iron) tablet 325 mg PO TID #45 tab 12/08/17 [Last Taken Unknown] insulin aspart U- 100 100 unit/mL subcutaneous pen 1 unit SUB-Q ACHS #15 ml 12/08/17 [Last Taken Unknown] insulin detemir (U-100) 100 unit/mL (3 mL) subcutaneous pen See Rx Instructions SUB-Q DAILY #15 ml 12/09/17 [Last Taken Unknown] Ciprofloxacin HCl 500 mg PO BID 01/29/18 [Last Taken Unknown] Exam - Exam Vital Signs: Vital Signs - Last Taken Temp 37.4 C 01/30/18 09:00 Pulse 93 01/30/18 09:00 Resp 20 01/30/18 09:00 BP 110/65 01/30/18 09:00 Pulse Ox 92 L 01/30/18 09:00 Constitutional: Present: Alert, Oriented x3, Cooperative ENT Exam: Present: hearing grossly normal Eye Exam: bilateral eye: normal inspection Respiratory: Present: lungs clear, normal breath sounds, no respiratory distress Cardiovascular/Chest: Present: regular rate, rhythm, systolic murmur - 2+ Abdomen: Present: Normal bowel sounds, soft, nontender, nondistended Extremity: Present: swelling - left ankle Skin Exam: Present: other - Fistula located at right foot tracking from medial aspect of distal foot to planter surface, no erythema, ulcer bed appears healthy; left ankle erythematous and diffuse swelling with medial and lateral yellow blister. No active drainage. Pain to ankle palpation and ROM Diagnostic Studies: Abnormal Lab Results 01/29/18 01/29/18 01/29/18 Range/Units 21:37 21:37 23:00 WBC 12.7 H (4.0-10.5) K/mm3 RBC 2.89 L (4.2-5.4) M/mm3 Hgb 7.6 L* (12.5-16.0) gm/dL Hct 25.3 L (37.0-47.0) % MCH 26.3 L (27-31) pg MCHC 30.0 L (32-36) g/dl RDW 15.8 H (11.5-14.0) % Plt Count 459 H (150-450) K/mm3 Immature Gran % (Auto) 1.90 H (0.001-0.429) % Immature Gran # (Auto) 0.24 H (0.000-0.0310) K/mm3 Neutrophils % 76.9 H (42-75.0) % Lymphocytes % 14.4 L (20-51) % Neutrophils # 9.8 H (1.3-6.0) K/mm3 Lymphocytes # (1.5-3.5) k/mm3 Sodium 128 L (132-142) mmol/L Potassium 4.7 H (3.4-4.6) mmol/L Chloride 95 L (97-106) mmol/L Est GFR (Non-Af Amer) 45 L D (60-130) mL/min Random Glucose 454 H (70-110) mg/dL ALT 11 L (19-67) U/L C-Reactive Prot, Quant 16.8 H (0.0-0.9) mg/dL Albumin 2.2 L (3.4-5.0) gm/dl Crossmatch See Detail 01/30/18 Range/Units 10:10 WBC 11.1 H (4.0-10.5) K/mm3 RBC 3.00 L (4.2-5.4) M/mm3 Hgb 8.1 L (12.5-16.0) gm/dL Hct 25.9 L (37.0-47.0) % MCH (27-31) pg MCHC 31.3 L (32-36) g/dl RDW 15.1 H (11.5-14.0) % Plt Count (150-450) K/mm3 Immature Gran % (Auto) 1.90 H (0.001-0.429) % Immature Gran # (Auto) 0.21 H (0.000-0.0310) K/mm3 Neutrophils % 78.8 H (42-75.0) % Lymphocytes % 11.9 L (20-51) % Neutrophils # 8.7 H (1.3-6.0) K/mm3 Lymphocytes # 1.32 L (1.5-3.5) k/mm3 Sodium (132-142) mmol/L Potassium (3.4-4.6) mmol/L Chloride (97-106) mmol/L Est GFR (Non-Af Amer) (60-130) mL/min Random Glucose (70-110) mg/dL ALT (19-67) U/L C-Reactive Prot, Quant (0.0-0.9) mg/dL Albumin (3.4-5.0) gm/dl Crossmatch Laboratory Results WBC 11.1 K/mm3 (4.0-10.5) H 01/30/18 10:10 RBC 3.00 M/mm3 (4.2-5.4) L 01/30/18 10:10 Hgb 8.1 gm/dL (12.5-16.0) L 01/30/18 10:10 Hct 25.9 % (37.0-47.0) L 01/30/18 10:10 MCV 86.3 fl (78-100) 01/30/18 10:10 MCH 27.0 pg (27-31) 01/30/18 10:10 MCHC 31.3 g/dl (32-36) L 01/30/18 10:10 RDW 15.1 % (11.5-14.0) H 01/30/18 10:10 Plt Count 319 K/mm3 (150-450) 01/30/18 10:10 MPV 9.1 fl (8-12.5) 01/30/18 10:10 Immature Gran % (Auto) 1.90 % (0.001-0.429) H 01/30/18 10:10 Immature Gran # (Auto) 0.21 K/mm3 (0.000-0.0310) H 01/30/18 10:10 Neutrophils % 78.8 % (42-75.0) H 01/30/18 10:10 Lymphocytes % 11.9 % (20-51) L 01/30/18 10:10 Monocytes % 6.0 % (0.0-9) 01/30/18 10:10 Eosinophils % 0.9 % (0.0-3.0) 01/30/18 10:10 Basophils % 0.5 % (0.0-1.0) 01/30/18 10:10 Nucleated RBC % 0.0 k/mm3 (0-1) 01/30/18 10:10 Neutrophils # 8.7 K/mm3 (1.3-6.0) H 01/30/18 10:10 Lymphocytes # 1.32 k/mm3 (1.5-3.5) L 01/30/18 10:10 Monocytes # 0.7 k/mm3 (0.0-1.0) 01/30/18 10:10 Eosinophils # 0.1 k/mm3 (0.0-0.7) 01/30/18 10:10 Absolute Basophils 0.1 k/mm3 (0.0-0.1) 01/30/18 10:10 Sodium 128 mmol/L (132-142) L 01/29/18 21:37 Plasma Sodium 134 mmol/L (130-142) 01/29/18 21:37 Potassium 4.7 mmol/L (3.4-4.6) H 01/29/18 21:37 Chloride 95 mmol/L (97-106) L 01/29/18 21:37 Carbon Dioxide 26.7 mmol/L (24-32.6) 01/29/18 21:37 Anion Gap 11.0 mmol/L (6.8-13.8) 01/29/18 21:37 BUN 15 mg/dL (3-23) 01/29/18 21:37 Creatinine 1.35 mg/dL (0.4-1.4) D 01/29/18 21:37 Est GFR (Non-Af Amer) 45 mL/min (60-130) L D 01/29/18 21:37 BUN/Creatinine Ratio 11.1 (9.0-21.6) 01/29/18 21:37 Random Glucose 454 mg/dL (70-110) H 01/29/18 21:37 Lactic Acid, Venous 1.3 mmol/L (0.4-2.0) 01/29/18 21:37 Calcium 8.8 mg/dL (7.9-10.9) 01/29/18 21:37 Calcium Adj for Albumin 9.9 mg/dL (8.4-10.2) 01/29/18 21:37 Total Bilirubin 0.3 mg/dL (0.0-1.1) 01/29/18 21:37 AST 11 U/L (0-48) 01/29/18 21:37 ALT 11 U/L (19-67) L 01/29/18 21:37 Alkaline Phosphatase 138 U/L (50-170) 01/29/18 21:37 Troponin I Less than 0.017 ng/mL (0.00-0.10) 01/29/18 21:37 C-Reactive Prot, Quant 16.8 mg/dL (0.0-0.9) H 01/29/18 21:37 Total Protein 8.0 gm/dL (6.2-8.2) 01/29/18 21:37 Albumin 2.2 gm/dl (3.4-5.0) L 01/29/18 21:37 Serum Ketones Negative (NEGATIVE) 01/29/18 21:37 Blood Type O Positive 01/29/18 23:00 Antibody Screen Negative 01/29/18 23:00 Crossmatch See Detail 01/29/18 23:00 Assessment/Plan - Narrative Narrative: Krystyna is a 47 yo female with left foot/ankle cellulitis and suspected abscess. This has failed outpatient treatment with Cipro and Bactrim for a week. There is fluid collection on ankle present. Therefore, concerns for abscess vs septic arthritis vs osteomyelitis. Will evaluate with MRI of left ankle. Will start IV antibiotics of clindamycin and vancomycin. Patient with history of MRSA. Cultures of abscess pending. Due to failed outpatient treatment, until cultures return to narrow antibiotics. Will need >2 midnights of IV antibiotics and will therefore admit to acute inpatient status. - Assessment/Plan (1) Cellulitis and abscess of foot Problem: Acute
[2018-01-30] MEDS ORDERED: HYDROcodone/ACETAMINOPHEN 1 EACH TABLET PO PRN (10:42)
[2018-01-30] MEDS: VANCOMYCIN HCL 1 GM in DEXTROSE 5 % IN WATER 250 ML IV SCH ×4 (10:47→22:12)
[2018-01-30 10:58] LABS: BUN/Creatinine Ratio 10.8 (9.0-21.6); Potassium 4.3 mmol/L (3.4-4.6)
[2018-01-30 10:59] LABS: Albumin * 2.1 gm/dl (3.4-5.0); Anion Gap 12.9 mmol/L (6.8-13.8); Bilirubin, Total 0.5 mg/dL (0.0-1.1); Calcium * 8.8 mg/dL (7.9-10.9); Carbon Dioxide 25.4 mmol/L (24-32.6); Total Protein 7.7 gm/dL (6.2-8.2)
[2018-01-30] MEDS: LISINOPRIL 2.5 MG TABLET PO SCH (11:01)
[2018-01-30] MEDS: INSULIN ASPART 100 UNITS/ML VIAL SC SCH ×2 (11:54→17:11)
[2018-01-30] MEDS: FERROUS SULFATE 325 MG TABLET PO SCH ×2 (14:39→17:14)
[2018-01-30] MEDS ORDERED: INSULIN DETEMIR 100 UNITS/ML VIAL SC SCH (21:00)
[2018-01-30] MEDS: busPIRone HCL 5 MG TABLET PO SCH (22:08)
[2018-01-30] MEDS: HYDROcodone/ACETAMINOPHEN 1 EACH TABLET PO PRN (22:09)
[2018-01-30] MEDS: ROSUVASTATIN CALCIUM 20 MG TABLET PO SCH (22:09)
[2018-01-30] MEDS: DULoxetine HCL 30 MG CAPSULE.SA PO SCH (22:10)
[2018-01-30] MEDS: GABAPENTIN 600 MG TABLET PO SCH (22:12)
[2018-01-30] MEDS: GABAPENTIN 300 MG CAPSULE PO SCH (22:12)
[2018-01-30] MEDS: INSULIN DETEMIR 100 UNITS/ML VIAL SC SCH (22:25)
[2018-01-31] MEDS: INSULIN ASPART 100 UNITS/ML VIAL SC SCH ×3 (06:49→16:51)
[2018-01-31] MEDS: LISINOPRIL 2.5 MG TABLET PO SCH (08:26)
[2018-01-31] MEDS: DULoxetine HCL 30 MG CAPSULE.SA PO SCH ×2 (08:26→20:05)
[2018-01-31] MEDS: FERROUS SULFATE 325 MG TABLET PO SCH ×3 (08:26→16:51)
[2018-01-31] MEDS: GABAPENTIN 300 MG CAPSULE PO SCH ×2 (08:26→20:07)
[2018-01-31] MEDS: busPIRone HCL 5 MG TABLET PO SCH ×2 (08:28→20:08)
[2018-01-31] MEDS: INSULIN DETEMIR 100 UNITS/ML VIAL SC SCH ×2 (08:31→20:10)
[2018-01-31] MEDS ORDERED: VANCOMYCIN HCL LEVEL XX ONE (09:30)
[2018-01-31 09:43] LABS: Hematocrit 28.3 % (37.0-47.0); Hemoglobin 8.8 gm/dL (12.5-16.0); Mean Cell Volume 86.5 fl (78-100); Mean Corpuscular Hemoglobin 26.9 pg (27-31); Mean Corpuscular Hgb Conc 31.1 g/dl (32-36); Neutrophil # 6.7 K/mm3 (1.3-6.0); Neutrophil % 72.2 % (42-75.0); Platelet Count 351 K/mm3 (150-450); Red Blood Count 3.27 M/mm3 (4.2-5.4); Red Cell Distribution Width 15.1 % (11.5-14.0); White Blood Count 9.3 K/mm3 (4.0-10.5)
[2018-01-31 09:56] LABS: Albumin * 2.3 gm/dl (3.4-5.0); Anion Gap 12.8 mmol/L (6.8-13.8); BUN/Creatinine Ratio 16.3 (9.0-21.6); Bilirubin, Total 0.3 mg/dL (0.0-1.1); Ca. Corrected For Albumin 10.4 mg/dL (8.4-10.2); Calcium * 9.4 mg/dL (7.9-10.9); Carbon Dioxide 28.4 mmol/L (24-32.6); Potassium 4.2 mmol/L (3.4-4.6); Total Protein 8.3 gm/dL (6.2-8.2)
[2018-01-31] MEDS: VANCOMYCIN HCL 1 GM in DEXTROSE 5 % IN WATER 250 ML IV SCH ×2 (10:31)
[2018-01-31] MEDS: GABAPENTIN 600 MG TABLET PO SCH (20:07)
[2018-01-31] MEDS: ROSUVASTATIN CALCIUM 20 MG TABLET PO SCH (20:07)
--- NOTE | 2018-01-31 23:35 | PN ---
Subjective - Date and Time Seen Date: 01/31/18 Time: 10:00 Subjective Narrative: Feeling a little better today. Still having left ankle swelling, redness, and pain. Cultures on left foot returned today showing MRSA and enterococcus. Based on sensitivities these can both be treated with Daptomycin. Will begin this treatment today. Objective - Vitals Vitals: Last Vital Signs Temp 37.7 C 01/31/18 23:22 Pulse 88 01/31/18 23:22 Resp 20 01/31/18 23:22 BP 104/47 01/31/18 23:22 Pulse Ox 95 01/31/18 23:22 - Abnormal Lab Findings Abnormal Lab Findings: Abnormal Lab Results 01/31/18 01/31/18 Range/Units 09:36 09:36 RBC 3.27 L (4.2-5.4) M/mm3 Hgb 8.8 L (12.5-16.0) gm/dL Hct 28.3 L (37.0-47.0) % MCH 26.9 L (27-31) pg MCHC 31.1 L (32-36) g/dl RDW 15.1 H (11.5-14.0) % Immature Gran % (Auto) 2.70 H (0.001-0.429) % Immature Gran # (Auto) 0.25 H (0.000-0.0310) K/mm3 Lymphocytes % 16.0 L (20-51) % Neutrophils # 6.7 H (1.3-6.0) K/mm3 Lymphocytes # 1.49 L (1.5-3.5) k/mm3 Random Glucose 124 H (70-110) mg/dL Calcium Adj for Albumin 10.4 H (8.4-10.2) mg/dL ALT 11 L (19-67) U/L Total Protein 8.3 H (6.2-8.2) gm/dL Albumin 2.3 L (3.4-5.0) gm/dl - Exam Constitutional: Present: Alert, Oriented x3, Cooperative ENT Exam: Present: hearing grossly normal Cardiovascular/Chest: Present: regular rate, rhythm Abdomen: Present: Normal bowel sounds, soft, nontender, nondistended Skin Exam: Present: other - Left ankle erythematous and swollen, slight improvement from yesterday. Assessment/Plan Plan Narrative: Change antibiotics to daptomycin today based on cultures growing MRSA and enterococcus, both sensitive to daptomycin. - Problems/Diagnosis (1) Cellulitis and abscess of foot Problem: Acute
[2018-02-01] MEDS: INSULIN ASPART 100 UNITS/ML VIAL SC SCH ×3 (07:27→18:36)
[2018-02-01] MEDS: DULoxetine HCL 30 MG CAPSULE.SA PO SCH ×2 (09:29→20:20)
[2018-02-01] MEDS: GABAPENTIN 300 MG CAPSULE PO SCH ×2 (09:29→20:21)
[2018-02-01] MEDS: LISINOPRIL 2.5 MG TABLET PO SCH (09:29)
[2018-02-01] MEDS: busPIRone HCL 5 MG TABLET PO SCH ×2 (09:29→20:18)
[2018-02-01] MEDS: FERROUS SULFATE 325 MG TABLET PO SCH ×3 (09:29→18:33)
[2018-02-01] MEDS: INSULIN DETEMIR 100 UNITS/ML VIAL SC SCH ×2 (09:30→20:17)
[2018-02-01 10:39] LABS: Hematocrit 28.3 % (37.0-47.0); Hemoglobin 8.8 gm/dL (12.5-16.0); Mean Cell Volume 86.3 fl (78-100); Mean Corpuscular Hemoglobin 26.8 pg (27-31); Mean Corpuscular Hgb Conc 31.1 g/dl (32-36); Mean Platelet Volume 9.1 fl (8-12.5); Neutrophil # 6.5 K/mm3 (1.3-6.0); Neutrophil % 68.3 % (42-75.0); Platelet Count 386 K/mm3 (150-450); Red Blood Count 3.28 M/mm3 (4.2-5.4); Red Cell Distribution Width 14.9 % (11.5-14.0); White Blood Count 9.5 K/mm3 (4.0-10.5)
[2018-02-01 10:56] LABS: Albumin * 2.2 gm/dl (3.4-5.0); Anion Gap 13.9 mmol/L (6.8-13.8); Bilirubin, Total 0.3 mg/dL (0.0-1.1); Ca. Corrected For Albumin 10.7 mg/dL (8.4-10.2); Calcium * 9.6 mg/dL (7.9-10.9); Carbon Dioxide 29.1 mmol/L (24-32.6); Total Protein 8.3 gm/dL (6.2-8.2)
--- NOTE | 2018-02-01 19:49 | PN ---
Subjective - Date and Time Seen Date: 02/01/18 Time: 10:00 Subjective Narrative: Feeling better. She notices less pain, swelling, and redness. Blister has ruptured, but only has minimal drainage. No fever, chills, nausea, or vomiting. Objective - Vitals Vitals: Last Vital Signs Temp 37.2 C 02/01/18 18:21 Pulse 97 02/01/18 18:21 Resp 18 02/01/18 18:21 BP 110/66 02/01/18 15:00 Pulse Ox 97 02/01/18 18:21 - Abnormal Lab Findings Abnormal Lab Findings: Abnormal Lab Results 02/01/18 02/01/18 Range/Units 10:25 10:25 RBC 3.28 L (4.2-5.4) M/mm3 Hgb 8.8 L (12.5-16.0) gm/dL Hct 28.3 L (37.0-47.0) % MCH 26.8 L (27-31) pg MCHC 31.1 L (32-36) g/dl RDW 14.9 H (11.5-14.0) % Immature Gran % (Auto) 1.90 H (0.001-0.429) % Immature Gran # (Auto) 0.18 H (0.000-0.0310) K/mm3 Neutrophils # 6.5 H (1.3-6.0) K/mm3 Anion Gap 13.9 H (6.8-13.8) mmol/L Random Glucose 166 H D (70-110) mg/dL Calcium Adj for Albumin 10.7 H (8.4-10.2) mg/dL ALT 12 L (19-67) U/L Total Protein 8.3 H (6.2-8.2) gm/dL Albumin 2.2 L (3.4-5.0) gm/dl - Exam Constitutional: Present: Alert, Oriented x3, Cooperative Respiratory: Present: lungs clear Cardiovascular/Chest: Present: regular rate, rhythm, no murmur Abdomen: Present: Normal bowel sounds, soft, nontender, nondistended Skin Exam: Present: other - Mild erythema and healing blister of left ankle. Erythema and swelling are better than yesterday. Appearance: Present: appropriate appearance, appropriate insight Eye contact: Present: cooperative, good eye contact, normal speech Assessment/Plan Plan Narrative: Left foot cellulitis and abscess with cultures positive for MRSA and E nterococcos. Based on cultures sensitive on both to daptomycin which is on day 2 today. Clinically improving. Recommend 10 days minimum of daptomycin. If this continues to show improvement could consider discharge to home tomorrow with Daptomycin infusions daily through [facility]. - Problems/Diagnosis (1) Cellulitis and abscess of foot Problem: Acute
[2018-02-01] MEDS: ROSUVASTATIN CALCIUM 20 MG TABLET PO SCH (20:19)
[2018-02-01] MEDS: GABAPENTIN 600 MG TABLET PO SCH (20:21)
[2018-02-02] MEDS: HYDROcodone/ACETAMINOPHEN 1 EACH TABLET PO PRN (02:07)
[2018-02-02] MEDS: INSULIN ASPART 100 UNITS/ML VIAL SC SCH ×2 (06:58→12:02)
[2018-02-02] MEDS: LISINOPRIL 2.5 MG TABLET PO SCH (10:22)
[2018-02-02] MEDS: DULoxetine HCL 30 MG CAPSULE.SA PO SCH (10:23)
[2018-02-02] MEDS: GABAPENTIN 300 MG CAPSULE PO SCH (10:23)
[2018-02-02] MEDS: FERROUS SULFATE 325 MG TABLET PO SCH ×2 (10:23→15:27)
[2018-02-02] MEDS: busPIRone HCL 5 MG TABLET PO SCH (10:23)
[2018-02-02] MEDS: INSULIN DETEMIR 100 UNITS/ML VIAL SC SCH (10:29)
--- NOTE | 2018-02-02 14:54 | DS ---
(1) Cellulitis and abscess of foot Problem: Acute Description of Stay: Krystyna is a 47 yo female with left foot/ankle cellulitis and abscess. MRI obtained on day of admission to evaluate for osteomyelitis. There was no significant evidence of osteomyelitis identified but there was a fluid collection found. She had already been treated and failed for outpatient treatment with bactrim and Cipro. Culture of left foot wound had been obtained and cultures were monitored. She was initially started on Vancomycin and clindamycin. The cultures ultimately grew MRSA and Enterococcus. These pathogens were sensitive to daptomycin. This was started on 01/31/18. She improved clinically and WBC normalized. Will continue Daptomycin 500mg every 24 hours IV through [facility]. She will come in at 10am tomorrow and every day until she has completed 10 days. Day 1 was 01/31/18 and her final day of antibiotics will be on 02/09/18. She will follow up with [facility], Dr. Ramirez tomorrow for dressing change of right foot which was previously being followed by the wound clinic. Procedures Performed: none Results and Findings: Pending Mircobiology Results 01/29/18 21:52 Blood Blood Culture - Preliminary NO GROWTH AFTER 48 HOURS 01/29/18 21:37 Blood Blood Culture - Preliminary NO GROWTH AFTER 48 HOURS Lab Pending Results 01/29/18 21:37: WBC 12.7 H, RBC 2.89 L, Hgb 7.6 L*, Hct 25.3 L, MCV 87.5, MCH 26.3 L, MCHC 30.0 L, RDW 15.8 H, Plt Count 459 H, MPV 9.2, Immature Gran % (Auto) 1.90 H, Immature Gran # (Auto) 0.24 H, Neutrophils % 76.9 H, Lymphocytes % 14.4 L, Monocytes % 5.3, Eosinophils % 1.0, Basophils % 0.5, Nucleated RBC % 0.0, Neutrophils # 9.8 H, Lymphocytes # 1.83, Monocytes # 0.7, Eosinophils # 0.1, Absolute Basophils 0.1 01/29/18 21:37: Sodium 128 L, Plasma Sodium 134, Potassium 4.7 H, Chloride 95 L, Carbon Dioxide 26.7, Anion Gap 11.0, BUN 15, Creatinine 1.35 D, Est GFR (Non-Af Amer) 45 L D, BUN/Creatinine Ratio 11.1, Random Glucose 454 H, Calcium 8.8, Calcium Adj for Albumin 9.9, Total Bilirubin 0.3, AST 11, ALT 11 L, Alkaline Phosphatase 138, Troponin I Less than 0.017, C-Reactive Prot, Quant 16.8 H, Total Protein 8.0, Albumin 2.2 L 01/29/18 21:37: Lactic Acid, Venous 1.3 01/29/18 21:37: Serum Ketones Negative 01/29/18 23:00: Blood Type O Positive, Antibody Screen Negative, Crossmatch See Detail 01/30/18 10:10: WBC 11.1 H, RBC 3.00 L, Hgb 8.1 L, Hct 25.9 L, MCV 86.3, MCH 27.0, MCHC 31.3 L, RDW 15.1 H, Plt Count 319, MPV 9.1, Immature Gran % (Auto) 1.90 H, Immature Gran # (Auto) 0.21 H, Neutrophils % 78.8 H, Lymphocytes % 11.9 L, Monocytes % 6.0, Eosinophils % 0.9, Basophils % 0.5, Nucleated RBC % 0.0, Neutrophils # 8.7 H, Lymphocytes # 1.32 L, Monocytes # 0.7, Eosinophils # 0.1, Absolute Basophils 0.1 01/30/18 10:10: Sodium 133, Plasma Sodium 134, Potassium 4.3, Chloride 99, Carbon Dioxide 25.4, Anion Gap 12.9, BUN 11, Creatinine 1.02, Est GFR (Non-Af Amer) 62 D, BUN/Creatinine Ratio 10.8, Random Glucose 133 H D, Calcium 8.8, Calcium Adj for Albumin 10.0, Total Bilirubin 0.5, AST 10, ALT 14 L, Alkaline Phosphatase 122, Total Protein 7.7, Albumin 2.1 L 01/31/18 09:36: Sodium 136, Plasma Sodium 136, Potassium 4.2, Chloride 99, Carbon Dioxide 28.4, Anion Gap 12.8, BUN 16, Creatinine 0.98, Est GFR (Non-Af Amer) 65, BUN/Creatinine Ratio 16.3, Random Glucose 124 H, Calcium 9.4, Calcium Adj for Albumin 10.4 H, Total Bilirubin 0.3, AST 9, ALT 11 L, Alkaline Phosphatase 117, Total Protein 8.3 H, Albumin 2.3 L, Vancomycin Trough 13.0 01/31/18 09:36: WBC 9.3, RBC 3.27 L, Hgb 8.8 L, Hct 28.3 L, MCV 86.5, MCH 26.9 L, MCHC 31.1 L, RDW 15.1 H, Plt Count 351, MPV 9.0, Immature Gran % (Auto) 2.70 H, Immature Gran # (Auto) 0.25 H, Neutrophils % 72.2, Lymphocytes % 16.0 L, Monocytes % 6.2, Eosinophils % 2.3, Basophils % 0.6, Nucleated RBC % 0.0, Neutrophils # 6.7 H, Lymphocytes # 1.49 L, Monocytes # 0.6, Eosinophils # 0.2, Absolute Basophils 0.1 02/01/18 10:25: WBC 9.5, RBC 3.28 L, Hgb 8.8 L, Hct 28.3 L, MCV 86.3, MCH 26.8 L, MCHC 31.1 L, RDW 14.9 H, Plt Count 386, MPV 9.1, Immature Gran % (Auto) 1.90 H, Immature Gran # (Auto) 0.18 H, Neutrophils % 68.3, Lymphocytes % 21.2, M onocytes % 6.0, Eosinophils % 2.0, Basophils % 0.6, Nucleated RBC % 0.0, Neutrophils # 6.5 H, Lymphocytes # 2.02, Monocytes # 0.6, Eosinophils # 0.2, Absolute Basophils 0.1 02/01/18 10:25: Sodium 138, Plasma Sodium 139, Potassium 4.0, Chloride 99, Carbon Dioxide 29.1, Anion Gap 13.9 H, BUN 15, Creatinine 0.94, Est GFR (Non-Af Amer) 68, BUN/Creatinine Ratio 16.0, Random Glucose 166 H D, Calcium 9.6, Calcium Adj for Albumin 10.7 H, Total Bilirubin 0.3, AST 12, ALT 12 L, Alkaline Phosphatase 106, Total Protein 8.3 H, Albumin 2.2 L Discharge Location: Home Disposition: Home self-care Condition: Fair Discharge Activity: Activity as tolerated, Other - rest foot as much as possible Discharge Diet: Consistent carbs Referrals: Leah Aleman FNP [Primary Care Provider] - One Week Karli Ramirez DPM [Staff Physician] - 02/03/18 (Keep scheduled appointment in wound clinic with Dr. Ramirez) Problem Oriented Discharge Instructions to Patient/Family: Cellulitis, Adult, [id number] Additional Patient Instructions (free text): -Please make TCM appointment unless [facility] discharge. Thank you! Hui @ ext:[phone]. Come into [facility] tomorrow at 10am for your antibiotic. Fax script for antibiotic to [facility]. Please write height and weight on script before faxing. Prescriptions (Any new or edited meds): DAPTOmycin [Cubicin] 500 mg IV Q24H 9 Days vial Complete Home Medications List: Complete Home Medication List: hydrocodone 5 mg-acetaminophen 325 mg tablet 1 tab PO TID-QID PRN #30 tab 11/26/17 atorvastatin 80 mg tablet 80 mg PO DAILY 11/27/17 gabapentin 300 mg capsule 300 mg PO BID 11/27/17 lisinopril 2.5 mg tablet 2.5 mg PO DAILY 11/27/17 Gabapentin [Neurontin] 600 mg PO HS #0 11/28/17 buspirone 15 mg tablet 15 mg PO BID #60 tab 12/08/17 duloxetine 60 mg capsule,delayed release 60 mg PO BID #60 cap 12/08/17 ferrous fumarate 325 mg (106 mg iron) tablet 325 mg PO TID #45 tab 12/08/17 insulin aspart U- 100 100 unit/mL subcutaneous pen 1 unit SUB-Q ACHS #15 ml 12/08/17 insulin detemir (U-100) 100 unit/mL (3 mL) subcutaneous pen See Rx Instructions SUB-Q DAILY #15 ml 12/09/17 DAPTOmycin [Cubicin] 500 mg IV Q24H 9 Days vial 02/02/18 Insulin Detemir [Levemir] 40 units SC QAM vial 02/02/18 Insulin Detemir [Levemir] 60 units SC HS vial 02/02/18
[2018-02-02 18:57] VITALS: BP 119/70
== END 2018-02-02 17:25 | disposition home or self-care (01) | DRG 603 ==
LOC: ER 21:10 → MS 22:43
PROVIDERS: ADMIT Family Medicine; ATTEND Family Medicine
CPT/HCPCS: 36415; 36430; 73610; 73723; 80053; 80202; 82009; 83605; 84484; 85025; 86140; 86850; 86900; 87040; 87081; 90686; 93005; 96361; 96365; 96367; 99285; J0878; P9016

== ENCOUNTER 2018-03-16 11:21 | Inpatient (IN) | payer MEDICAID, MEDICARE ==
--- NOTE | 2018-03-16 12:22 | ERNOTE ---
Lower Extremity HPI - Narrative Date of Service: 03/16/18 - General Lower Extremities Pain: leg: left, ankle: left Time Seen by Provider: 03/16/18 12:17 Source: patient Exam Limitations: no limitations - Immun/Allergies/Home Medications Immunizations: IMMUNIZATION HX Immunizations Up to Date Yes Allergies/Adverse Reactions: Allergies Allergy/AdvReac Type Severity Reaction Status Date / Time [facility] Allergy Hives Verified 03/16/18 11:38 Home Medications: HOME MEDICATIONS atorvastatin 80 mg tablet 80 mg PO HS 11/27/17 [Last Taken Unknown] gabapentin 300 mg capsule 300 mg PO BID@0800,1400 11/27/17 [Last Taken 11/27/17] Gabapentin [Neurontin] 600 mg PO HS #0 11/28/17 [Last Taken Unknown] buspirone 15 mg tablet 15 mg PO BID #60 tab 12/08/17 [Last Taken Unknown] duloxetine 60 mg capsule,delayed release 60 mg PO BID #60 cap 12/08/17 [Last Taken Unknown] ferrous fumarate 325 mg (106 mg iron) tablet 325 mg PO TID #45 tab 12/08/17 [Last Taken Unknown] insulin aspart U- 100 100 unit/mL subcutaneous pen 1 unit SUB-Q ACHS #15 ml 12/08/17 [Last Taken Unknown] Insulin Detemir [Levemir] 40 units SC QAM vial 02/02/18 [Last Taken Unknown] Insulin Detemir [Levemir] 60 units SC HS vial 02/02/18 [Last Taken Unknown] hydrocodone 5 mg-acetaminophen 325 mg tablet 1 tab PO TID-QID PRN #30 tab 02/05/18 [Last Taken Unknown] - Pain Score Pain Score #1 Pain Score: 7 - History of Present Illness Narrative: The patient is a 47 year old female who presents for increased left ankle pain and swelling which has been present since Friday. There are associated symptoms of near syncope, fever, chills and fatigue. Patient also reports having nausea with vomiting with improvement after taking Zofran. The patient reports pain to left medial and lateral ankle as well as posterior calf, 09/16. There are no alleviating factors. There are aggravating factors of activity or palpation. Previous treatments have included: [place] and Zofran with slight improvement. The past medical history includes: ID, GERD, depression, DM, anemia, anxiety and ORIF of left ankle. The social history is negative. The patient has had no ill contacts. Patient states she she saw last prior to . Patient denies new injury. Patient states that she has slept most of the weekend having increased fatigue. Review of Systems - Review of Systems Constitutional: Present: fever, chills, fatigue EYE: Present: no symptoms reported ENT: Present: no symptoms reported. Absent: ear pain, nasal drainage, sore throat Respiratory: Present: no symptoms reported. Absent: shortness of breath, cough Cardiology: Present: no symptoms reported. Absent: chest pain Gastrointestinal/Abdominal: Present: nausea, vomiting. Absent: diarrhea Genitourinary: Present: no symptoms reported. Absent: dysuria Musculoskeletal: Present: joint pain, joint swelling Skin: Present: no symptoms reported. 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 History of depression History of hypercholesterolemia Hx of gastroesophageal reflux (GERD) Hx of myocardial infarction Surgical History: Surgical History (Last Reviewed 03/16/18 @ 12:27 by JOI Jones) 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 Smoking Status Never smoker (Last Updated 12/22/17 @ 16:42 by Phill Stout DO) No Social History Section defined Physical Exam - Physical Exam General Appearance: Present: wd/wn, alert, no apparent distress Head Exam: Present: normal inspection Eye Exam: Normal inspection: bilateral Ears, Nose, Throat: Present: normal ENT inspection, normal pharynx, other - malodorous breath, dental caries Neck: Present: normal inspection Respiratory: Present: no respiratory distress, normal breath sounds, no accessory muscle use, lungs clear Cardiovascular/Chest: Present: regular rate, rhythm, no murmur Peripheral Pulses: N=norm/S=strong/W=weak/B=bound/A=absent: Dorsalis-pedis (L): Normal - left popliteal normal Extremity Exam: Present: pedal edema, calf tenderness, joint swelling - left circumferential ankle, dorsal foot Neurological Exam: Present: alert, oriented, normal mood/affect Skin Exam: Present: normal color, warm/dry Progress - Date and Time Seen: Date and Time: 03/16/18 14:00 Left message to discuss case with . 03/16/18 14:37 Discussed case with , will discuss with and call back with plan of care for podiatry management vs orthopedic. 03/16/18 14:44 Discussed case with and patient will need admitted for cellulitis with failed outpatient treatment and MRI of left ankle for further evaluation and appropriate specialty consultation with findings. 03/16/18 15:07 Patient will be admitted for IV antibiotics due to left lower extremity cellulitis and elevated inflammatory markers and hydration under care. Will plan for patient to have inpatient MRI of left ankle for further evaluation. Discussed with and will place in for observation. 03/16/18 was notified of MRI results, will proceed with consults needed. - Results and Orders Patient's Lab Results:: I have reviewed the patient's lab results. - Vital Signs Patient's Vital Signs:: I have reviewed the patient's vital signs. Vital Signs: Vital Signs 03/16/18 11:35 Temperature 36.8 C Pulse Rate 100 Respiratory Rate 17 Blood Pressure 111/81 O2 Sat by Pulse Oximetry 99 - X-Ray X-Ray #1 X-Ray: ankle Interpretation: Reviewed by me X-ray Comments: X-RAY REPORT ~[id number] RAD/Ankle Minimum 3 View LT *~ Exam Date: 03/16/2018 12:23 Ordering Physician: Lyn Mdaison FERRIS WHEEL [employer]PERATOR HISTORY/INDICATION: left ankle swelling and pain Additional history from technologist: left ankle swelling and pain, no known injury, left ankle pain laterally, sprained ankle 2 months ago, hx of osteomyelitis-5th digit surgically absent. TECHNIQUE: 3 views of the left ankle. COMPARISONS: 01/29/2018, left foot study from 01/20/2018. Ankle Minimum 3 View LT * No definable fracture lucency or cortical discontinuity. No focal osteoblastic or osteolytic lesion. 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 Joint spaces are in gross normal alignment without subluxation or dislocation. There is worsening soft tissue swelling throughout the ankle. There is also joint effusion suggested at the tibiotalar joint. IMPRESSION: Interval radiographic worsening soft tissue swelling. Joint effusion present. No acute osseous finding. Electronically signed by Adeel Hernandez M.D.. - Progress/Reassessment Chief Complaint: Lower Extremity Pain/ Injury Departure Clinical Impression: Failure of outpatient treatment Cellulitis Qualifiers: Site of cellulitis: extremity Site of cellulitis of extremity: lower extremity Laterality: left Qualified Code(s): L03.116 - Cellulitis of left lower limb - Departure Disposition: Still a patient Condition: Stable
[2018-03-16 12:37] LABS: Hematocrit 31.6 % (37.0-47.0); Hemoglobin 9.8 gm/dL (12.5-16.0); Mean Cell Volume 83.8 fl (78-100); Mean Platelet Volume 9.5 fl (8-12.5); Neutrophil # 5.7 K/mm3 (1.3-6.0); Neutrophil % 68.3 % (42-75.0); Platelet Count 261 K/mm3 (150-450); Red Blood Count 3.77 M/mm3 (4.2-5.4); Red Cell Distribution Width 15.2 % (11.5-14.0); White Blood Count 8.3 K/mm3 (4.0-10.5)
[2018-03-16] MEDS ORDERED: MORPHINE SULFATE 2 MG/ML DISP.SYRIN IV ONE (12:37)
[2018-03-16] MEDS ORDERED: ONDANSETRON HCL/PF 2 MG/ML VIAL IV ONE (12:37)
[2018-03-16 12:56] LABS: BUN/Creatinine Ratio 14.8 (9.0-21.6)
[2018-03-16 12:57] LABS: Albumin * 3.4 gm/dl (3.4-5.0); Anion Gap 12.3 mmol/L (6.8-13.8); Bilirubin, Total 0.6 mg/dL (0.0-1.1); Ca. Corrected For Albumin 9.6 mg/dL (8.4-10.2); Calcium * 9.4 mg/dL (7.9-10.9); Carbon Dioxide 27.2 mmol/L (24-32.6); Potassium 3.5 mmol/L (3.4-4.6); Total Protein 9.5 gm/dL (6.2-8.2)
[2018-03-16 13:03] LABS: CRP 13.4 mg/dL (0.0-0.9)
[2018-03-16] MEDS ORDERED: NORMAL SALINE 1,000 ML IV ONE (14:55)
[2018-03-16] MEDS ORDERED: VANCOMYCIN HCL 1 GM in DEXTROSE 5 % IN WATER 250 ML IV ONE ×2 (14:55)
[2018-03-16] MEDS ORDERED: CIPROFLOXACIN IN 5 % DEXTROSE 400 MG/200 ML BAG IV SCH (15:00)
[2018-03-16] MEDS: NORMAL SALINE 1,000 ML IV PRN (17:35)
[2018-03-16] MEDS ORDERED: HYDROcodone/ACETAMINOPHEN 1 EACH TABLET PO PRN (17:40)
[2018-03-16] MEDS ORDERED: IBUPROFEN 600 MG TABLET PO PRN (17:47)
[2018-03-16] MEDS ORDERED: ONDANSETRON HCL/PF 2 MG/ML VIAL IV PRN (17:55)
--- NOTE | 2018-03-16 18:30 | HP ---
Chief Complaint - Chief Complaint Date of Service: 03/16/18 Time of Service: 18:11 Chief Complaint: And got left ankle pain, fever, chills since Friday History of Present Illness: 47-year-old female with past medical history of GERD, depression, anxiety disorder, anemia, type 2 diabetes, diabetic neuropathy, old myocardial infarction, ORIF of the left ankle was evaluated in the ER for left ankle pain accompanied by fever and chills nausea and vomiting of 4 days duration. Patient reports since Friday of last week she has been having pain and the left ankle with warmth of the involved extremity and fever on and off accompanied by generalized weakness and several episodes of nausea and vomiting.. Patient has multiple amputations of several digits of both feet due to osteomyelitis and was last treated at [facility] in January of last year. She denies recent trauma to the involved limb but reports having a history of ankle sprain of the involved ankle. 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 History of depression History of hypercholesterolemia Hx of gastroesophageal reflux (GERD) Hx of myocardial infarction Surgical History: Surgical History (Last Reviewed 03/16/18 @ 12:27 by JOI Jones) 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 Hx of section Hx of tubal ligation History of bilateral carpal tunnel release (Inactive) Hx of heart artery stent (Inactive) Family History: Family History (Last Reviewed 03/16/18 @ 12:27 by JOI Jones) Father COPD (chronic obstructive pulmonary disease) Diabetes Heart disease Mother COPD (chronic obstructive pulmonary disease) Diabetes Heart disease Social History: Preferred Language Cook Islander Do you have any mormon or No cultural preference? Smoking Status Never smoker (Last Updated 12/22/17 @ 16:42 by Phill Stout DO) No Social History Section defined Peds Patient Hx - Developmental: No Pertinent Hx Peds Patient Hx - Medical: No Pertinent Hx Peds Patient Hx - Cardiac/Respiratory: No Pertinent Hx Peds Patient Hx - Surgical: No Surgical History Patient History - Cancer: No Hx of Cancer Review Of Systems (GEN) - Review of Systems Generalized/Overall Review: Present: Weakness, Chills, Fever EENTM: Present: No Symptoms Reported Respiratory: Present: No Symptoms Reported Cardiac: Present: No Symptoms Reported Abdominal: Present: No Symptoms Reported Genitourinary: Present: No Symptoms Reported Musculoskeletal: Present: Joint Pain - Left ankle pain Neurological: Present: No Symptoms Reported Skin: Present: No Symptoms Reported Endocrine: Present: No Symptoms Reported Immunizations: IMMUNIZATION HX Immunizations Up to Date Yes Allergies/Adverse Reactions: Allergies Allergy/AdvReac Type Severity Reaction Status Date / Time cefaclor [From [facility]] Allergy Hives Verified 03/16/18 11:38 Home Medications: HOME MEDICATIONS atorvastatin 80 mg tablet 80 mg PO DAILY 11/27/17 [Last Taken Unknown] gabapentin 300 mg capsule 300 mg PO BID 11/27/17 [Last Taken 11/27/17] Gabapentin [Neurontin] 600 mg PO HS #0 11/28/17 [Last Taken Unknown] buspirone 15 mg tablet 15 mg PO BID #60 tab 12/08/17 [Last Taken Unknown] duloxetine 60 mg capsule,delayed release 60 mg PO BID #60 cap 12/08/17 [Last Taken Unknown] ferrous fumarate 325 mg (106 mg iron) tablet 325 mg PO TID #45 tab 12/08/17 [Last Taken Unknown] insulin aspart U- 100 100 unit/mL subcutaneous pen 1 unit SUB-Q ACHS #15 ml 12/08/17 [Last Taken Unknown] Insulin Detemir [Levemir] 40 units SC QAM vial 02/02/18 [Last Taken Unknown] Insulin Detemir [Levemir] 60 units SC HS vial 02/02/18 [Last Taken Unknown] hydrocodone 5 mg-acetaminophen 325 mg tablet 1 tab PO TID-QID PRN #30 tab 02/05/18 [Last Taken Unknown] Exam - Exam Vital Signs: Vital Signs - Last Taken Temp 36.9 C 03/16/18 15:45 Pulse 91 03/16/18 15:45 Resp 18 03/16/18 15:45 BP 137/76 03/16/18 15:45 Pulse Ox 99 03/16/18 15:45 Constitutional: Present: Alert, Oriented x3, Cooperative, Well developed, Well nourished, No distress ENT Exam: Present: normal ENT inspection Eye Exam: bilateral eye: normal inspection, PERRL, EOMI Neck: Present: non-tender, full range of motion, supple, normal inspection, trachea midline Back Exam: Present: normal inspection, no CVA tenderness, no vertebral tenderness Breasts: Present: Exam deferred Respiratory: Present: chest non-tender, lungs clear, normal breath sounds, no respiratory distress, no accessory muscle use Cardiovascular/Chest: Present: normal peripheral pulses, regular rate, rhythm, no chest tenderness, no edema, no gallop, no JVD, no murmur, no rub Peripheral Pulses: carotid (R): 4+, carotid (L): 4+, femoral (R): 4+, femoral (L): 4+, dorsalis-pedis (R): 4+, dorsalis-pedis (L): 4+, radial (R): 4+, radial (L): 4+ Abdomen: Present: Normal bowel sounds, soft, nontender, nondistended, no rebound tenderness, no hepatospenomegaly, no masses /Rectal: Present: Exam deferred Extremity: Present: normal range of motion, non-tender, no calf tenderness, pedal edema - Left ankle edema with mild tenderness to palpation, amputation of left fifth toe, amputation of the second right and fifth right toe, swelling Skin Exam: Present: warm/dry, no cyanosis Lymphatic: Present: no adenopathy Neurologic: Present: prop and effects designer II-XII nml as tested Appearance: Present: appropriate appearance, appropriate insight, neat, no memory impairment Eye contact: Present: cooperative, good eye contact, normal speech Thoughts: Present: normal thought pattern Diagnostic Studies: Abnormal Lab Results 03/16/18 03/16/18 03/16/18 Range/Units 12:30 12:30 12:30 RBC 3.77 L (4.2-5.4) M/mm3 Hgb 9.8 L (12.5-16.0) gm/dL Hct 31.6 L (37.0-47.0) % MCH 26.0 L (27-31) pg MCHC 31.0 L (32-36) g/dl RDW 15.2 H (11.5-14.0) % ESR 118 H (0-15) mm/hr Sodium 131 L (132-142) mmol/L Chloride 95 L (97-106) mmol/L Est GFR (Non-Af Amer) 54 L D (60-130) mL/min ALT 12 L (19-67) U/L C-Reactive Prot, Quant 13.4 H (0.0-0.9) mg/dL Total Protein 9.5 H (6.2-8.2) gm/dL Laboratory Results WBC 8.3 K/mm3 (4.0-10.5) 03/16/18 12:30 RBC 3.77 M/mm3 (4.2-5.4) L 03/16/18 12:30 Hgb 9.8 gm/dL (12.5-16.0) L 03/16/18 12:30 Hct 31.6 % (37.0-47.0) L 03/16/18 12:30 MCV 83.8 fl (78-100) 03/16/18 12:30 MCH 26.0 pg (27-31) L 03/16/18 12:30 MCHC 31.0 g/dl (32-36) L 03/16/18 12:30 RDW 15.2 % (11.5-14.0) H 03/16/18 12:30 Plt Count 261 K/mm3 (150-450) 03/16/18 12:30 MPV 9.5 fl (8-12.5) 03/16/18 12:30 Immature Gran % (Auto) 0.20 % (0.001-0.429) 03/16/18 12:30 Immature Gran # (Auto) 0.02 K/mm3 (0.000-0.0310) 03/16/18 12:30 Neutrophils % 68.3 % (42-75.0) 03/16/18 12:30 Lymphocytes % 23.1 % (20-51) 03/16/18 12:30 Monocytes % 7.6 % (0.0-9) 03/16/18 12:30 Eosinophils % 0.2 % (0.0-3.0) 03/16/18 12:30 Basophils % 0.6 % (0.0-1.0) 03/16/18 12:30 Nucleated RBC % 0.0 k/mm3 (0-1) 03/16/18 12:30 Neutrophils # 5.7 K/mm3 (1.3-6.0) 03/16/18 12:30 Lymphocytes # 1.92 k/mm3 (1.5-3.5) 03/16/18 12:30 Monocytes # 0.6 k/mm3 (0.0-1.0) 03/16/18 12:30 Eosinophils # 0.0 k/mm3 (0.0-0.7) 03/16/18 12:30 Absolute Basophils 0.1 k/mm3 (0.0-0.1) 03/16/18 12:30 ESR 118 mm/hr (0-15) H 03/16/18 12:30 Sodium 131 mmol/L (132-142) L 03/16/18 12:30 Plasma Sodium 131 mmol/L (130-142) 03/16/18 12:30 Potassium 3.5 mmol/L (3.4-4.6) 03/16/18 12:30 Chloride 95 mmol/L (97-106) L 03/16/18 12:30 Carbon Dioxide 27.2 mmol/L (24-32.6) 03/16/18 12:30 Anion Gap 12.3 mmol/L (6.8-13.8) 03/16/18 12:30 BUN 17 mg/dL (3-23) 03/16/18 12:30 Creatinine 1.15 mg/dL (0.4-1.4) 03/16/18 12:30 Est GFR (Non-Af Amer) 54 mL/min (60-130) L D 03/16/18 12:30 BUN/Creatinine Ratio 14.8 (9.0-21.6) 03/16/18 12:30 Random Glucose 89 mg/dL (70-110) 03/16/18 12:30 Lactic Acid, Venous 1.0 mmol/L (0.4-2.0) 03/16/18 12:30 Calcium 9.4 mg/dL (7.9-10.9) 03/16/18 12:30 Calcium Adj for Albumin 9.6 mg/dL (8.4-10.2) 03/16/18 12:30 Total Bilirubin 0.6 mg/dL (0.0-1.1) 03/16/18 12:30 AST 19 U/L (0-48) 03/16/18 12:30 ALT 12 U/L (19-67) L 03/16/18 12:30 Alkaline Phosphatase 123 U/L (50-170) 03/16/18 12:30 C-Reactive Prot, Quant 13.4 mg/dL (0.0-0.9) H 03/16/18 12:30 Total Protein 9.5 gm/dL (6.2-8.2) H 03/16/18 12:30 Albumin 3.4 gm/dl (3.4-5.0) 03/16/18 12:30 Assessment/Plan - Narrative Narrative: After evaluating patient at bedside and evaluation of the medical record including labs x-ray and MRI of the involved limb decision to admit patient to inpatient [facility] for treatment with IV antibiotics IV hydration orthopedic consult and pain management was taken. Preliminary MRI results confirmed our suspicion of osteomyelitis of the left ankle. Consult to orthopedic air traffic control specialist center was requested. Patient has symptoms of nausea and vomiting which resulted in moderate dehydration which will require IV hydration with normal saline. She was found to have elevated ESR and CRP which indicate positive inflammatory markers, will repeat labs in the morning and inflammatory markers and 48 hours to follow her progress. Will also order pain medication as well as symptomatic medication on a as needed basis. Patient will also get her usual insulin and a diabetic diet will be ordered. - Assessment/Plan (1) Osteomyelitis Problem: Acute Qualifiers: Osteomyelitis location: ankle Laterality: left (2) Moderate dehydration Problem: Acute (3) Diabetes 1.5, managed as type 2 Problem: Acute (4) Fever and chills Problem: Acute (5) Nausea & vomiting Problem: Acute (6) Cellulitis of left lower extremity Problem: Acute
[2018-03-16] MEDS ORDERED: ACETAMINOPHEN 500 MG TABLET PO PRN (19:45)
[2018-03-16] MEDS: DULoxetine HCL 20 MG CAPSULE.SA PO SCH (20:39)
[2018-03-16] MEDS: busPIRone HCL 5 MG TABLET PO SCH (20:39)
[2018-03-16] MEDS: GABAPENTIN 600 MG TABLET PO SCH (20:39)
[2018-03-16] MEDS: ENOXAPARIN SODIUM 40 MG/0.4 ML SYRG SC SCH (20:40)
[2018-03-16] MEDS: INSULIN REGULAR, HUMAN 100 UNITS/ML VIAL SC SCH (20:42)
[2018-03-16] MEDS: INSULIN GLARGINE,HUM.REC.ANLOG 100 UNITS/ML VIAL SC SCH (20:43)
[2018-03-17] MEDS: CIPROFLOXACIN IN 5 % DEXTROSE 400 MG/200 ML BAG IV SCH ×2 (02:12→13:38)
[2018-03-17] MEDS ORDERED: VANCOMYCIN HCL 0.75 GM in DEXTROSE 5 % IN WATER 250 ML IV SCH ×2 (03:30)
[2018-03-17 05:27] LABS: Hematocrit 25.9 % (37.0-47.0); Mean Cell Volume 84.6 fl (78-100); Mean Corpuscular Hemoglobin 25.5 pg (27-31); Mean Corpuscular Hgb Conc 30.1 g/dl (32-36); Mean Platelet Volume 10.1 fl (8-12.5); Neutrophil # 3.7 K/mm3 (1.3-6.0); Neutrophil % 66.4 % (42-75.0); Platelet Count 195 K/mm3 (150-450); Red Blood Count 3.06 M/mm3 (4.2-5.4); Red Cell Distribution Width 15.2 % (11.5-14.0); White Blood Count 5.5 K/mm3 (4.0-10.5)
[2018-03-17 05:46] LABS: BUN/Creatinine Ratio 15.9 (9.0-21.6)
[2018-03-17 05:47] LABS: Albumin * 2.6 gm/dl (3.4-5.0); Anion Gap 10.2 mmol/L (6.8-13.8); Bilirubin, Total 0.3 mg/dL (0.0-1.1); Ca. Corrected For Albumin 9.4 mg/dL (8.4-10.2); Calcium * 8.6 mg/dL (7.9-10.9); Carbon Dioxide 25.2 mmol/L (24-32.6); Potassium 3.4 mmol/L (3.4-4.6); Total Protein 7.5 gm/dL (6.2-8.2)
[2018-03-17 06:17] LABS: Hemoglobin 7.8 gm/dL (12.5-16.0)
[2018-03-17] MEDS: NORMAL SALINE 1,000 ML IV PRN ×2 (06:51→18:49)
[2018-03-17] MEDS: INSULIN REGULAR, HUMAN 100 UNITS/ML VIAL SC SCH ×4 (06:55→20:22)
[2018-03-17] MEDS: DOCUSATE SODIUM 100 MG CAPSULE PO SCH (08:20)
[2018-03-17] MEDS: busPIRone HCL 5 MG TABLET PO SCH ×2 (08:20→20:21)
[2018-03-17] MEDS: ROSUVASTATIN CALCIUM 20 MG TABLET PO SCH (08:21)
[2018-03-17] MEDS: GABAPENTIN 300 MG CAPSULE PO SCH ×2 (08:21→13:38)
[2018-03-17] MEDS: DULoxetine HCL 20 MG CAPSULE.SA PO SCH ×2 (08:21→20:21)
[2018-03-17] MEDS: FERROUS SULFATE 325 MG TABLET PO SCH ×3 (08:21→17:05)
[2018-03-17] MEDS: FAMOTIDINE 20 MG TABLET PO SCH (08:21)
[2018-03-17] MEDS ORDERED: FERROUS FUMARATE 325 MG PO SCH (09:00)
[2018-03-17] MEDS: INSULIN GLARGINE,HUM.REC.ANLOG 100 UNITS/ML VIAL SC SCH ×2 (09:59→20:22)
--- NOTE | 2018-03-17 13:10 | CONS ---
[facility] - General Date of Service: 03/17/18 Narrative: Mrs. Adhikari is a 47-year-old insulin-dependent diabetic who has had long- standing recurrent bilateral feet infection and cellulitis. She has had a previous left small toe amputation and has had recurrent intermittent cellulitis to her left leg. She noted significant increased swelling pain and redness with warmth. This more difficult for her to ambulate and she was brought into the hospital for evaluation. She is subsequently admitted for concern for cellulitis versus deep infection. An MRI was obtained which showed suspected septic tibiotalar, talonavicular, subtalar, and surrounding soft tissue infections. MRI was also concerning for osteomyelitis of a significant portion of the calcaneus and talus. She denies any other areas of pain on the left side. Source: patient Exam Limitations: no limitations - History of Present Illness Timing/Duration: 24 hours Severity: moderate Modifying Factors - (Worsens): Reports: movement Modifying Factors - (Improves): Reports: immobilization, medication Associated Symptoms: denies symptoms Allergies/Adverse Reactions: Allergies cefaclor [From [facility]] Allergy (Verified 03/16/18 11:38) Hives Home Medications: Home Medications Medication Instructions Recorded Last Taken atorvastatin 80 mg tablet 80 mg PO HS 11/27/17 Unknown gabapentin 300 mg capsule 300 mg PO BID@0800,1400 11/27/17 11/27/17 Gabapentin [Neurontin] 600 mg PO HS #0 11/28/17 Unknown buspirone 15 mg tablet 15 mg PO BID #60 tab 12/08/17 Unknown duloxetine 60 mg capsule,delayed 60 mg PO BID #60 cap 12/08/17 Unknown release ferrous fumarate 325 mg (106 mg 325 mg PO TID #45 tab 12/08/17 Unknown iron) tablet insulin aspart U- 100 100 unit/mL 1 unit SUB-Q ACHS #15 ml 12/08/17 Unknown subcutaneous pen Insulin Detemir [Levemir] 40 units SC QAM vial 02/02/18 Unknown Insulin Detemir [Levemir] 60 units SC HS vial 02/02/18 Unknown hydrocodone 5 mg-acetaminophen 325 1 tab PO TID-QID PRN #30 tab 02/05/18 Unknown mg tablet Procedures Detachment at Right 5th Toe, Mid, Open Approach (11/28/17) Excision of Right Foot Subcutaneous Tissue and Fascia, Open Approach (11/28/17) Introduction of Serum, Toxoid and Vaccine into Muscle, Percutaneous Approach (01/29/18) Transfusion of Nonautologous Red Blood Cells into Peripheral Vein, Percutaneous Approach (01/29/18) Medications - Medications Current Medications: Current Medications Buspirone HCl (Buspar) 15 mg PO BID [facility]ER[facility] Stop: 04/15/18 21:01 Last Admin: 03/17/18 08:20 Dose: 15 mg Documented by: Docusate Sodium (Colace) 100 mg PO DAILY [facility]ERRI Stop: 04/16/18 09:01 Last Admin: 03/17/18 08:20 Dose: 100 mg Documented by: Duloxetine HCl (Cymbalta) 60 mg PO BID [facility]ERRI Stop: 04/15/18 21:01 Last Admin: 03/17/18 08:21 Dose: 60 mg Documented by: Enoxaparin Sodium (Lovenox) 40 mg SC Q24H [facility] Stop: 04/15/18 21:01 Last Admin: 03/16/18 20:40 Dose: 40 mg Documented by: Famotidine (Pepcid) 20 mg PO DAILY [facility]RI Stop: 04/16/18 09:01 Last Admin: 03/17/18 08:21 Dose: 20 mg Documented by: Ferrous Sulfate (Ferrous Sulfate) 325 mg PO Q48H [facility] Stop: 04/16/18 09:01 Last Admin: 03/17/18 08:21 Dose: 325 mg Documented by: Ferrous Sulfate (Ferrous Sulfate) 325 mg PO Q48H [facility] Stop: 04/16/18 13:01 Last Admin: 03/17/18 12:02 Dose: 325 mg Documented by: Gabapentin (Neurontin) 300 mg PO BID@0900,1400 [facility] Stop: 04/16/18 09:01 Last Admin: 03/17/18 08:21 Dose: 300 mg Documented by: Gabapentin (Neurontin) 600 mg PO HS [facility] Stop: 04/15/18 21:01 Last Admin: 03/16/18 20:39 Dose: 600 mg Documented by: Sodium Chloride (Sodium Chloride 0.9%) 1,000 mls @ 100 mls/hr IV .Q10H PRN PRN Reason: HYDRATION Stop: 04/15/18 15:00 Last Admin: 03/17/18 06:51 Dose: 100 mls/hr Documented by: Ciprofloxacin/Dextrose (Cipro) 400 mg in 200 mls @ 200 mls/hr IV Q12H [facility]; Protocol Stop: 04/16/18 03:01 Last Infusion: 03/17/18 03:12 Dose: Infused Documented by: Insulin Glargine (Lantus) 60 units SC HS [facility] Stop: 04/15/18 21:01 Last Admin: 03/16/18 20:43 Dose: 60 units Documented by: Insulin Glargine (Lantus) 40 units SC QAM [facility] Stop: 04/16/18 09:27 Last Admin: 03/17/18 09:59 Dose: 40 units Documented by: Insulin Human Regular (Humulin R) 0 units SC ACHSINS [facility]; Protocol Stop: 04/15/18 21:01 Last Admin: 03/17/18 12:02 Dose: 5 units Documented by: Rosuvastatin Calcium (Crestor) 40 mg PO DAILY [facility] Stop: 04/16/18 09:01 Last Admin: 03/17/18 08:21 Dose: 40 mg Documented by: Review of Systems - Review of Systems Generalized/Overall Review: Present: No Symptoms Reported Physical Examination - Exam Narrative: Left lower extremity: Status post small toe amputation with well-healed incisions, significantly enlarged ankle joint with effusion, erythema, calor, and painful range of motion, sensation is decreased but intact through the foot, palpable dorsalis pedis pulse, painful intact ankle and subtalar range of motion, tenderness to palpation Vital Signs: Vital Signs - Last Taken Temp 36.3 C 03/17/18 06:57 Pulse 80 03/17/18 06:57 Resp 12 03/17/18 06:57 BP 101/56 03/17/18 06:57 Pulse Ox 96 03/17/18 06:57 O2 Oxygen Delivery Method Room Air Constitutional: Present: Alert, Oriented x3 - Results and Findings: Narrative: X-rays of left ankle: Status post small toe amputation, noted soft tissue swelling joint effusion MRI with and without contrast left ankle: see above, significant signs of infection Lab/Microbiology results last 24 hrs: Abnormal/Pending Laboratory Last 24 HRS 03/17/18 03/17/18 03/17/18 09:25 05:10 05:10 RBC 3.06 L Hgb 7.8 L* D Hct 25.9 L MCH 25.5 L MCHC 30.1 L RDW 15.2 H Monocytes % 9.1 H Lymphocytes # 1.23 L ESR Sodium Chloride Est GFR (Non-Af Amer) Random Glucose 182 H D ALT 8 L C-Reactive Prot, Quant Total Protein Albumin 2.6 L Crossmatch See Detail 03/16/18 03/16/18 12:30 12:30 RBC Hgb Hct MCH MCHC RDW Monocytes % Lymphocytes # ESR 118 H Sodium 131 L Chloride 95 L Est GFR (Non-Af Amer) 54 L D Random Glucose ALT 12 L C-Reactive Prot, Quant 13.4 H Total Protein 9.5 H Albumin Crossmatch Culture 03/16/18 12:49 Blood Culture - Preliminary Blood NO GROWTH 24 HOURS 03/16/18 12:30 Blood Culture - Preliminary Blood NO GROWTH 24 HOURS - Assessments/Findings (1) Septic arthritis of ankle or foot Diagnosis(s): I discussed with Ms. Adhikari her MRI pathology and concern for chronic deep infection with significant osteomyelitis. Options for treatment were discussed including irrigation and debridement with a risk of persistent ongoing infection and need for prolonged IV antibiotics with the ultimate outcome being amputation versus proceeding with a below the knee amputation in order to resect the infected tissue and allow for quicker recovery with earlier ambulation. She would like to proceed with below the knee amputation. The risks, benefits and recovery were discussed. As long as she is medically sound to proceed the plan is to proceed tomorrow. She will need to be n.p.o. after midnight. Problem: Acute (2) Cellulitis of left lower extremity Problem: Acute (3) Osteomyelitis Problem: Acute Qualifiers: Osteomyelitis location: ankle Laterality: left
[2018-03-17] MEDS ORDERED: VANCOMYCIN HCL 1 GM in DEXTROSE 5 % IN WATER 250 ML IV SCH ×2 (15:00)
[2018-03-17] MEDS: DEXTROSE 5% IV SCH ×3 (15:13)
[2018-03-17] MEDS: WATER IV SCH ×3 (15:13)
[2018-03-17] MEDS: VANCOMYCIN HCL IV SCH ×3 (15:13)
--- NOTE | 2018-03-17 17:10 | PN ---
Subjective - Date and Time Seen Date: 03/17/18 Time: 09:45 Subjective Narrative: Pt did well overnight, vital signs stable. Pain in left foot well controlled. Awaiting consult from ortho. Objective - Vitals Vitals: Last Vital Signs Temp 36.6 C 03/17/18 14:17 Pulse 92 03/17/18 14:17 Resp 20 03/17/18 14:17 BP 114/61 03/17/18 14:17 Pulse Ox 96 03/17/18 14:17 - Abnormal Lab Findings Abnormal Lab Findings: Abnormal Lab Results 03/17/18 03/17/18 03/17/18 Range/Units 05:10 05:10 09:25 RBC 3.06 L (4.2-5.4) M/mm3 Hgb 7.8 L* D (12.5-16.0) gm/dL Hct 25.9 L (37.0-47.0) % MCH 25.5 L (27-31) pg MCHC 30.1 L (32-36) g/dl RDW 15.2 H (11.5-14.0) % Monocytes % 9.1 H (0.0-9) % Lymphocytes # 1.23 L (1.5-3.5) k/mm3 Random Glucose 182 H D (70-110) mg/dL ALT 8 L (19-67) U/L Albumin 2.6 L (3.4-5.0) gm/dl Crossmatch See Detail - Exam Constitutional: Present: Alert, Oriented x3, Mild distress - concenred for upcoming surgery Respiratory: Present: chest non-tender, lungs clear, no respiratory distress Cardiovascular/Chest: Present: normal peripheral pulses, regular rate, rhythm Abdomen: Present: Normal bowel sounds, soft, nontender Extremity: Present: leg pain - LLE, swelling - left ankle, other - pain with ROM of left ankle, dorsalis pedis 2/4 Skin Exam: Absent: normal color - erythematous left ankle Neurologic: Present: no motor/sensory deficits Eye contact: Present: cooperative, good eye contact Thoughts: Present: normal thought pattern, normal mood /affect Assessment/Plan Plan Narrative: MRI confirmed osteomyelitis of left lower extremity, ortho officially consulted and to be seen later today. Likely back for surgery tomorrow. Surgical options briefly discussed but explained to her that Dr. Strong would be able to provide full details including what was needed for the best possible outcomes. She agreed with this. I adjusted her vancomycin, ordered a vanc trough to be drawn one hour prior to 4th dose. Continued cipro. As for her IDDM, restarted her home insulin. Placed her on a high sliding scale with orders to have the nurse call me with sugars greater than 170. Will order 1 time dosing of 10 reg units in addition for tight glycemic control prior to surgery tomorrow. She did have an acute kidney injury which resolved, GFR back to baseline. Typed and crossed 1 unit, to be given this morning. Repeat h/h 2 hrs post transfusion. Repeat CBC in the AM. Vitals have bene stable this am. Should be good to go tomorrow for surgery as long as hemoglobin > 8 - Problems/Diagnosis (1) Osteomyelitis Problem: Acute Qualifiers: Osteomyelitis location: ankle Laterality: left (2) Septic arthritis of ankle or foot Problem: Acute (3) Cellulitis of left lower extremity Problem: Acute (4) Insulin dependent diabetes mellitus Problem: Chronic (5) Anemia Problem: Chronic Qualifiers: Anemia type: unspecified type Qualified Code(s): D64.9 - Anemia, unspecified
[2018-03-17] MEDS ORDERED: INSULIN REGULAR, HUMAN 100 UNITS/ML VIAL SC ONE (17:20)
[2018-03-17] MEDS: GABAPENTIN 600 MG TABLET PO SCH (20:21)
[2018-03-17] MEDS: ENOXAPARIN SODIUM 40 MG/0.4 ML SYRG SC SCH (20:21)
[2018-03-18 02:01] LABS: Hemoglobin 8.8 gm/dL (12.5-16.0)
[2018-03-18] MEDS: CIPROFLOXACIN IN 5 % DEXTROSE 400 MG/200 ML BAG IV SCH ×2 (02:11→14:47)
[2018-03-18] MEDS: WATER IV SCH ×6 (03:18→18:29)
[2018-03-18] MEDS: VANCOMYCIN HCL IV SCH ×6 (03:18→18:29)
[2018-03-18] MEDS: DEXTROSE 5% IV SCH ×6 (03:18→18:29)
[2018-03-18 05:46] LABS: Hematocrit 29.4 % (37.0-47.0); Hemoglobin 9.2 gm/dL (12.5-16.0); Mean Cell Volume 84.5 fl (78-100); Mean Corpuscular Hemoglobin 26.4 pg (27-31); Mean Corpuscular Hgb Conc 31.3 g/dl (32-36); Mean Platelet Volume 9.8 fl (8-12.5); Neutrophil # 3.1 K/mm3 (1.3-6.0); Platelet Count 238 K/mm3 (150-450); Red Blood Count 3.48 M/mm3 (4.2-5.4); Red Cell Distribution Width 14.7 % (11.5-14.0); White Blood Count 5.7 K/mm3 (4.0-10.5)
[2018-03-18 06:05] LABS: Albumin * 2.7 gm/dl (3.4-5.0); Anion Gap 13.5 mmol/L (6.8-13.8); BUN/Creatinine Ratio 11.9 (9.0-21.6); Bilirubin, Total 0.3 mg/dL (0.0-1.1); CRP 6.6 mg/dL (0.0-0.9); Ca. Corrected For Albumin 9.5 mg/dL (8.4-10.2); Calcium * 8.8 mg/dL (7.9-10.9); Carbon Dioxide 26.1 mmol/L (24-32.6); Potassium 3.6 mmol/L (3.4-4.6); Total Protein 7.9 gm/dL (6.2-8.2)
[2018-03-18] MEDS: INSULIN REGULAR, HUMAN 100 UNITS/ML VIAL SC SCH ×4 (07:06→23:16)
[2018-03-18] MEDS: NORMAL SALINE 1,000 ML IV PRN ×2 (07:45→13:25)
[2018-03-18] MEDS: DOCUSATE SODIUM 100 MG CAPSULE PO SCH (08:25)
[2018-03-18] MEDS: busPIRone HCL 5 MG TABLET PO SCH ×2 (08:25→22:58)
[2018-03-18] MEDS: ROSUVASTATIN CALCIUM 20 MG TABLET PO SCH (08:25)
[2018-03-18] MEDS: DULoxetine HCL 20 MG CAPSULE.SA PO SCH ×2 (08:25→22:59)
[2018-03-18] MEDS: GABAPENTIN 300 MG CAPSULE PO SCH ×2 (08:25→14:51)
[2018-03-18] MEDS: INSULIN GLARGINE,HUM.REC.ANLOG 100 UNITS/ML VIAL SC SCH ×2 (08:25→23:18)
[2018-03-18] MEDS: FAMOTIDINE 20 MG TABLET PO SCH (08:25)
--- NOTE | 2018-03-18 11:23 | ANES ---
Anesthesia Pre Procedure Eval Vitals/Labs: Last Vital Signs Temp 37.0 C 03/18/18 10:40 Pulse 86 03/18/18 10:40 Resp 16 03/18/18 10:40 BP 145/73 H 03/18/18 10:40 Pulse Ox 98 03/18/18 10:40 HOME MEDICATIONS atorvastatin 80 mg tablet 80 mg PO HS 11/27/17 [Last Taken Unknown] gabapentin 300 mg capsule 300 mg PO BID@0800,1400 11/27/17 [Last Taken 11/27/17] Gabapentin [Neurontin] 600 mg PO HS #0 11/28/17 [Last Taken Unknown] buspirone 15 mg tablet 15 mg PO BID #60 tab 12/08/17 [Last Taken Unknown] duloxetine 60 mg capsule,delayed release 60 mg PO BID #60 cap 12/08/17 [Last Taken Unknown] ferrous fumarate 325 mg (106 mg iron) tablet 325 mg PO TID #45 tab 12/08/17 [Last Taken Unknown] insulin aspart U- 100 100 unit/mL subcutaneous pen 1 unit SUB-Q ACHS #15 ml 12/08/17 [Last Taken Unknown] Insulin Detemir [Levemir] 40 units SC QAM vial 02/02/18 [Last Taken Unknown] Insulin Detemir [Levemir] 60 units SC HS vial 02/02/18 [Last Taken Unknown] hydrocodone 5 mg-acetaminophen 325 mg tablet 1 tab PO TID-QID PRN #30 tab 02/05/18 [Last Taken Unknown] Allergies/Adverse Reactions: Allergies Allergy/AdvReac Type Severity Reaction Status Date / Time cefaclor [From [facility]] Allergy Hives Verified 03/16/18 11:38 - Planned Procedure Planned Procedure: LEG CELLULITIS Medication List Reviewed:: Yes Allergies Verified: Yes Medical History (Last Reviewed 03/18/18 @ 11:22 by Khadar Nava CRNA) Gastroesophageal reflux disease (Chronic) Depression (Chronic) Anxiety (Chronic) History of NE (myocardial infarction) (Resolved) Anemia (Chronic) Diabetes (Chronic) Peripheral neuropathy (Chronic) Diabetes 1.5, 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 History of depression History of hypercholesterolemia Hx of gastroesophageal reflux (GERD) Hx of myocardial infarction Surgical History (Last Reviewed 03/18/18 @ 11:22 by Khadar Nava CRNA) 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 Hx of section Hx of tubal ligation History of bilateral carpal tunnel release (Inactive) Hx of heart artery stent (Inactive) Family History (Last Reviewed 03/18/18 @ 11:22 by Khadar Nava CRNA) Father COPD (chronic obstructive pulmonary disease) Diabetes Heart disease Mother COPD (chronic obstructive pulmonary disease) Diabetes Heart disease - Family Anesthesia History Family History:: no untoward family reactions to anesthesia - Airway/Neck/Teeth Within Normal Limits:: Yes Teeth Condition: intact Denture Type: None Neck Exam: full range of motion Mallampatti Score: 2 Thyromental (T-M) distance: > 6 cm Mandibulo Hyoid distance: > 3 cm - Respiratory Respiratory Physical: lungs clear Smoking Status: Never smoker Sleep Apnea currently treated: No Sleep Apnea by current assessment: No - Cardiovascular Cardiac History: NE Tolerate Activity: Fair Heart Sounds: S1 & S2, Regular - Anesthesia Assessment and Plan ASA Class: PS, III Anesthesia Type Plan: Spinal Planned difficult intubation/equipment available: No
[2018-03-18] MEDS ORDERED: MAG HYDROX/ALUMINUM HYD/SIMETH 30 ML UDC PO PRN (13:59)
[2018-03-18] MEDS ORDERED: ZOLPIDEM TARTRATE 5 MG TABLET PO PRN (13:59)
[2018-03-18] MEDS ORDERED: MAGNESIUM HYDROXIDE 30 ML UDC PO PRN (13:59)
[2018-03-18] MEDS ORDERED: diphenhydrAMINE HCL 50 MG/ML VIAL IV PRN (13:59)
[2018-03-18] MEDS ORDERED: BUPIVACAINE HCL/PF 30 ML VIAL IJ ONE (14:00)
[2018-03-18] MEDS ORDERED: HYDROcodone/ACETAMINOPHEN 1 EACH TABLET PO PRN (14:02)
--- NOTE | 2018-03-18 14:04 | POSTOP NO ---
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
--- NOTE | 2018-03-18 14:51 | ANES ---
Post Anesthesia Discharge - Transfer of Care Transfer of Care handoff given to nurse: Yes - Discharge from PACU Discharge from PACU when meets criteria: Yes
--- NOTE | 2018-03-18 14:52 | ANES ---
Post Anesthesia Assessment - Vital Signs Vitals: Last Vital Signs Temp 36.3 C 03/18/18 14:15 Pulse 92 03/18/18 14:45 Resp 16 03/18/18 14:45 BP 130/76 03/18/18 14:45 Pulse Ox 100 03/18/18 14:45 Airway Patency: Normal - Mental Status Level Of Consciousness: Awake - Pain Level Pain Score: 0 - N/V Assessment Nausea/Vomiting Presence: None Dehydration:: No
[2018-03-18] MEDS ORDERED: VANCOMYCIN HCL LEVEL XX ONE ×2 (15:00)
--- NOTE | 2018-03-18 17:06 | PN ---
Subjective - Date and Time Seen Date: 03/18/18 Time: 16:51 Subjective Narrative: Drowsy post surg. Pain well controlled. Vital signs are stable. She has no questions or concerns at this time. Objective - Review of Systems Generalized/Overall Review: Reports: Fatigue. Denies: Chills, Fever EENTM: Reports: No Symptoms Reported Respiratory: Denies: Cough, Shortness of Breath, Wheezing Cardiac: Denies: Chest Pain, Edema, Palpitations Genitourinary Symptoms: Reports: No Symptoms Reported Musculoskeletal Complaints: Reports: Other - psot surgical pain Skin: Reports: Change in Color - in feet - Vitals Vitals: Last Vital Signs Temp 36.6 C 03/18/18 14:45 Pulse 92 03/18/18 14:45 Resp 16 03/18/18 14:45 BP 130/76 03/18/18 14:45 Pulse Ox 100 03/18/18 14:45 - Abnormal Lab Findings Abnormal Lab Findings: Abnormal Lab Results 03/17/18 03/18/18 03/18/18 Range/Units 09:25 02:00 02:00 RBC (4.2-5.4) M/mm3 Hgb 8.8 L (12.5-16.0) gm/dL Hct 28.0 L (37.0-47.0) % MCH (27-31) pg MCHC (32-36) g/dl RDW (11.5-14.0) % ESR (0-15) mm/hr Random Glucose (70-110) mg/dL ALT (19-67) U/L C-Reactive Prot, Quant (0.0-0.9) mg/dL Albumin (3.4-5.0) gm/dl Vancomycin Trough 9.8 L (10.0-20.0) mcg/mL Crossmatch See Detail 03/18/18 03/18/18 03/18/18 Range/Units 05:40 05:40 05:40 RBC 3.48 L (4.2-5.4) M/mm3 Hgb 9.2 L (12.5-16.0) gm/dL Hct 29.4 L (37.0-47.0) % MCH 26.4 L (27-31) pg MCHC 31.3 L (32-36) g/dl RDW 14.7 H (11.5-14.0) % ESR 112 H (0-15) mm/hr Random Glucose 220 H (70-110) mg/dL ALT 4 L (19-67) U/L C-Reactive Prot, Quant 6.6 H (0.0-0.9) mg/dL Albumin 2.7 L (3.4-5.0) gm/dl Vancomycin Trough (10.0-20.0) mcg/mL Crossmatch - Exam Constitutional: Present: Alert, Oriented x3, Obese Respiratory: Present: chest non-tender, lungs clear, normal breath sounds, no respiratory distress Cardiovascular/Chest: Present: normal peripheral pulses - right ankle, regular rate, rhythm Abdomen: Present: Normal bowel sounds, soft Extremity: Present: other - dressing intact, dry following L BKA Skin Exam: Present: other - cellulits infection in LLE, likely mostly removed following surgery-dressing in place Appearance: Present: appropriate insight, no memory impairment Eye contact: Present: cooperative, good eye contact Thoughts: Present: normal thought pattern, normal mood /affect Assessment/Plan Plan Narrative: Day 1 s/p L BKA performed by Dr. Strong. Will follow Ortho recs for pain control though nurses can call with any questions or concerns. Will continue vancomycin one more day before transitioning to clindamycin. Vanc trough low but patient had received 2 low doses prior to trough being drawn. Blood cultures negative. will consult Podiatry to follow patients other foot infection. As for her IDDM continue high sliding scale with orders to have the nurse call me with sugars greater than 170. Continue home regimen for long acting. Will advance diet as tolerated. She did have an acute kidney injury which resolved, GFR back to baseline. Typed and crossed 1 unit, given this morning. H/H improved >9 prior to surgery. Will repeat in the AM. Vitals stable, afebrile. - Problems/Diagnosis (1) Osteomyelitis Problem: Acute Qualifiers: Osteomyelitis location: ankle Laterality: left (2) Septic arthritis of ankle or foot Problem: Acute (3) Cellulitis of left lower extremity Problem: Acute (4) Insulin dependent diabetes mellitus Problem: Chronic (5) Anemia Problem: Chronic Qualifiers: Anemia type: unspecified type Qualified Code(s): D64.9 - Anemia, unspecified
[2018-03-18] MEDS: MORPHINE SULFATE 2 MG/ML DISP.SYRIN IV PRN ×3 (18:01→22:44)
[2018-03-18] MEDS: VANCOMYCIN HCL 1 GM, VANCOMYCIN HCL 500 MG in DEXTROSE 5 % IN WATER 500 ML IV SCH ×3 (18:01)
[2018-03-18] MEDS: GABAPENTIN 600 MG TABLET PO SCH (23:00)
[2018-03-18] MEDS: SENNOSIDES/DOCUSATE SODIUM 1 TAB TABLET PO SCH (23:00)
[2018-03-19] MEDS: MORPHINE SULFATE 2 MG/ML DISP.SYRIN IV PRN ×2 (00:26→02:05)
[2018-03-19] MEDS: CIPROFLOXACIN IN 5 % DEXTROSE 400 MG/200 ML BAG IV SCH ×2 (03:02→13:58)
[2018-03-19] MEDS: oxyCODONE HCL/ACETAMINOPHEN 1 TAB TABLET PO PRN ×3 (03:19→22:10)
[2018-03-19 05:28] LABS: Hematocrit 31.3 % (37.0-47.0); Hemoglobin 9.8 gm/dL (12.5-16.0); Mean Cell Volume 85.5 fl (78-100); Mean Corpuscular Hemoglobin 26.8 pg (27-31); Mean Corpuscular Hgb Conc 31.3 g/dl (32-36); Mean Platelet Volume 9.3 fl (8-12.5); Platelet Count 270 K/mm3 (150-450); Red Blood Count 3.66 M/mm3 (4.2-5.4); Red Cell Distribution Width 14.9 % (11.5-14.0); White Blood Count 7.8 K/mm3 (4.0-10.5)
[2018-03-19 05:43] LABS: Anion Gap 11.8 mmol/L (6.8-13.8); BUN/Creatinine Ratio 9.5 (9.0-21.6); Calcium * 9.1 mg/dL (7.9-10.9); Carbon Dioxide 27.8 mmol/L (24-32.6); Estimated Creat Clear 69.3; Potassium 3.6 mmol/L (3.4-4.6)
[2018-03-19] MEDS: INSULIN REGULAR, HUMAN 100 UNITS/ML VIAL SC SCH ×4 (07:06→21:57)
[2018-03-19] MEDS: VANCOMYCIN HCL 1 GM, VANCOMYCIN HCL 500 MG in DEXTROSE 5 % IN WATER 500 ML IV SCH ×3 (07:12)
--- NOTE | 2018-03-19 08:15 | PN ---
Subjective - Date and Time Seen Date: 03/19/18 Time: 08:09 Subjective Narrative: No complaints. She is sitting up in the chair and states that she was able to get up with physical therapy. She reports some mild phantom pain. Tolerating breakfast. Objective - Vitals Vitals: Last Vital Signs Temp 37.0 C 03/19/18 07:18 Pulse 85 03/19/18 07:18 Resp 16 03/19/18 07:18 BP 115/64 03/19/18 07:18 Pulse Ox 100 03/19/18 07:18 - Abnormal Lab Findings Abnormal Lab Findings: Abnormal Lab Results 03/19/18 Range/Units 05:10 RBC 3.66 L (4.2-5.4) M/mm3 Hgb 9.8 L (12.5-16.0) gm/dL Hct 31.3 L (37.0-47.0) % MCH 26.8 L (27-31) pg MCHC 31.3 L (32-36) g/dl RDW 14.9 H (11.5-14.0) % - Exam Exam Narrative: Left lower extremity: Dressings clean dry and intact, drain in place Constitutional: Present: Alert, Oriented x3 Assessment/Plan - Problems/Diagnosis (1) Septic arthritis of ankle or foot Problem: Acute (2) Cellulitis of left lower extremity Problem: Acute (3) Osteomyelitis Problem: Acute Qualifiers: Osteomyelitis location: ankle Laterality: left (4) S/P below knee amputation Problem: Acute Qualifiers: Laterality: left Qualified Code(s): Z89.512 - Acquired absence of left leg below knee Narrative: Continue with compression. We will apply med specialist once it is obtained. We will possibly remove the drain today depending on output. From an orthopedic standpoint after 24 hours she can stop her IV antibiotics. If the wound looks good tomorrow I feel she is stable to go home tomorrow.
[2018-03-19] MEDS: INSULIN GLARGINE,HUM.REC.ANLOG 100 UNITS/ML VIAL SC SCH ×2 (08:44→22:00)
[2018-03-19] MEDS: busPIRone HCL 5 MG TABLET PO SCH ×2 (08:50→22:01)
[2018-03-19] MEDS: DULoxetine HCL 20 MG CAPSULE.SA PO SCH ×2 (08:50→22:03)
[2018-03-19] MEDS: DOCUSATE SODIUM 100 MG CAPSULE PO SCH (08:50)
[2018-03-19] MEDS: ROSUVASTATIN CALCIUM 20 MG TABLET PO SCH (08:51)
[2018-03-19] MEDS: FERROUS SULFATE 325 MG TABLET PO SCH ×3 (08:51→17:25)
[2018-03-19] MEDS: FAMOTIDINE 20 MG TABLET PO SCH (08:51)
[2018-03-19] MEDS: GABAPENTIN 300 MG CAPSULE PO SCH ×2 (08:51→13:56)
--- NOTE | 2018-03-19 16:29 | CONS ---
- Reason for consultation (1) Chronic ulcer of right foot with fat layer exposed Date of Service: 03/19/18 Reason for Consultation:: Pt was admitted on 03/16/18 with worsening redness, swelling, and pain to her left ankle. Xray and MRI showing extensive osteomyelitis about her posterior foot and she subsequently underwent a BKA with Dr. Strong yesterday. She has poorly controlled DM with peripheral neuropathy. She has history of chronic ulcerations to her right foot, which I have been treating in the wound center. She was scheduled to come to the wound center twice weekly over the last 2 weeks for dressing changes, and did not show to her appointments. She has undergone previous partial 5th ray amputation on this foot due to infection. I was consulted to manage her right foot wounds. HPI - General Source: patient - History of Present Illness Allergies/Adverse Reactions: Allergies cefaclor [From Ceclor] Allergy (Verified 03/16/18 11:38) Hives Home Medications: Home Medications Medication Instructions Recorded Last Taken atorvastatin 80 mg tablet 80 mg PO HS 11/27/17 Unknown gabapentin 300 mg capsule 300 mg PO BID@0800,1400 11/27/17 11/27/17 Gabapentin [Neurontin] 600 mg PO HS #0 11/28/17 Unknown buspirone 15 mg tablet 15 mg PO BID #60 tab 12/08/17 Unknown duloxetine 60 mg capsule,delayed 60 mg PO BID #60 cap 12/08/17 Unknown release ferrous fumarate 325 mg (106 mg 325 mg PO TID #45 tab 12/08/17 Unknown iron) tablet insulin aspart U- 100 100 unit/mL 1 unit SUB-Q ACHS #15 ml 12/08/17 Unknown subcutaneous pen Insulin Detemir [Levemir] 40 units SC QAM vial 02/02/18 Unknown Insulin Detemir [Levemir] 60 units SC HS vial 02/02/18 Unknown hydrocodone 5 mg-acetaminophen 325 1 tab PO TID-QID PRN #30 tab 02/05/18 Unknown mg tablet Procedures Detachment at Right 5th Toe, Mid, Open Approach (11/28/17) Excision of Right Foot Subcutaneous Tissue and Fascia, Open Approach (11/28/17) Introduction of Serum, Toxoid and Vaccine into Muscle, Percutaneous Approach (01/29/18) Transfusion of Nonautologous Red Blood Cells into Peripheral Vein, Percutaneous Approach (01/29/18) Medications - Medications Current Medications: Current Medications Buspirone HCl (Buspar) 15 mg PO BID [facility] Stop: 04/15/18 21:01 Last Admin: 03/19/18 08:50 Dose: 15 mg Documented by: Docusate Sodium (Colace) 100 mg PO DAILY [facility] Stop: 04/16/18 09:01 Last Admin: 03/19/18 08:50 Dose: 100 mg Documented by: Duloxetine HCl (Cymbalta) 60 mg PO BID [facility] Stop: 04/15/18 21:01 Last Admin: 03/19/18 08:50 Dose: 60 mg Documented by: Famotidine (Pepcid) 20 mg PO DAILY [facility] Stop: 04/16/18 09:01 Last Admin: 03/19/18 08:51 Dose: 20 mg Documented by: Ferrous Sulfate (Ferrous Sulfate) 325 mg PO Q48H [facility] Stop: 04/16/18 09:01 Last Admin: 03/19/18 08:51 Dose: 325 mg Documented by: Ferrous Sulfate (Ferrous Sulfate) 325 mg PO Q48H [facility] Stop: 04/16/18 13:01 Last Admin: 03/19/18 13:57 Dose: 325 mg Documented by: Ferrous Sulfate (Ferrous Sulfate) 325 mg PO Q48H [facility] Stop: 04/16/18 17:01 Last Admin: 03/17/18 17:05 Dose: 325 mg Documented by: Gabapentin (Neurontin) 300 mg PO BID@0900,1400 [facility] Stop: 04/16/18 09:01 Last Admin: 03/19/18 13:56 Dose: 300 mg Documented by: Gabapentin (Neurontin) 600 mg PO HS [facility] Stop: 04/15/18 21:01 Last Admin: 03/18/18 23:00 Dose: 600 mg Documented by: Sodium Chloride (Sodium Chloride 0.9%) 1,000 mls @ 100 mls/hr IV .Q10H PRN PRN Reason: HYDRATION Stop: 04/15/18 15:00 Last Infusion: 03/19/18 03:03 Dose: Infused Documented by: Ciprofloxacin/Dextrose (Cipro) 400 mg in 200 mls @ 200 mls/hr IV Q12H [facility]; Protocol Stop: 04/16/18 03:01 Last Admin: 03/19/18 13:58 Dose: 200 mls/hr Documented by: Vancomycin HCl 1 gm/Vancomycin HCl 500 mg/Dextrose/Water 500 mls @ 180 mls/hr IV Q12H [facility]; Protocol Stop: 04/17/18 18:01 Last Infusion: 03/19/18 09:59 Dose: Infused Documented by: Insulin Glargine (Lantus) 60 units SC [facility] Stop: 04/15/18 21:01 Last Admin: 03/18/18 23:18 Dose: 60 units Documented by: Insulin Glargine (Lantus) 40 units SC [facility] Stop: 04/16/18 09:27 Last Admin: 03/19/18 08:44 Dose: 40 units Documented by: Insulin Human Regular (Humulin R) 0 units SC [facility]; Protocol Stop: 04/15/18 21:01 Last Admin: 03/19/18 11:58 Dose: 10 units Documented by: Morphine Sulfate (Morphine Sulfate) 2 mg IV Q30M PRN PRN Reason: Severe Pain (pain scale 7-10) Stop: 04/17/18 17:40 Last Admin: 03/19/18 02:05 Dose: 2 mg Documented by: Oxycodone/Acetaminophen (Percocet 5 Mg/325 Mg) 2 tab PO Q4H PRN PRN Reason: Moderate Pain (pain scale 4-6) Stop: 04/17/18 17:40 Last Admin: 03/19/18 08:49 Dose: 2 tab Documented by: Rosuvastatin Calcium (Crestor) 40 mg PO DAILY [facility] Stop: 04/16/18 09:01 Last Admin: 03/19/18 08:51 Dose: 40 mg Documented by: Senna/Docusate Sodium (Senokot-S) 2 tab PO [facility] Stop: 04/17/18 21:01 Last Admin: 03/18/18 23:00 Dose: 2 tab Documented by: Review of Systems - Review of Systems Generalized/Overall Review: Absent: Weakness, Chills, Fever Respiratory: Absent: Shortness of Breath Abdominal: Absent: Nausea, Vomiting, Diarrhea Neurological: Present: Numbness Physical Examination - Exam Vital Signs: Vital Signs - Last Taken Temp 36.5 C 03/19/18 14:38 Pulse 85 03/19/18 14:38 Resp 14 03/19/18 14:38 BP 104/63 03/19/18 14:38 Pulse Ox 94 03/19/18 14:38 O2 Oxygen Delivery Method Room Air Constitutional: Present: Alert, Oriented x3, Cooperative Peripheral Pulses: dorsalis-pedis (R): 2+ Extremity: Present: no pedal edema, normal capillary refill Skin Exam: Present: other - Ulceration to plantar medial right foot located sub 1st metatarsal head area that measures 0.5 x 0.5 x 0.5 cm. No tunneling or undermining. Loss of tissue to full thickness with exposure of subcutaneous fat layer. Base mostly red, granular. Surrounding tissue with significant hype rkeratotisis and dry eschar tissue. Scant serosanguinous drainage, no malodor. No exposed tendon or bone. Dessicated blood blister to lateral aspect of right foot at distal amputation site 5th ray that is easily removed revealing intact underlying skin. Neurologic: Present: sensory deficit Appearance: Present: appropriate appearance - Results and Findings: Lab/Microbiology results last 24 hrs: Abnormal/Pending Laboratory Last 24 HRS 03/19/18 05:10 RBC 3.66 L Hgb 9.8 L Hct 31.3 L MCH 26.8 L MCHC 31.3 L RDW 14.9 H Culture 03/16/18 12:49 Blood Culture - Preliminary Blood NO GROWTH AFTER 48 HOURS 03/16/18 12:30 Blood Culture - Preliminary Blood NO GROWTH AFTER 48 HOURS - Assessments/Findings (1) Chronic ulcer of right foot with fat layer exposed Diagnosis(s): Verbal consent obtained from patient for bedside debridment of ulceration to the right foot. Ulceration debrided to subcutaneous tissue with #15 blade, excising all hyperkeratotic/devitalized tissue from the periphery of the ulceration revealing healthy, bleeding, subcutaneous wound margins. Surface of the ulceration also debrided with #15 blade, removing any devitalized tissue, revealing a healthy, bleeding, subcutaneous wound bed. Hemostasis with compression. Pt tolerated well without complication. Dressed with Aquacel Ag, dry gauze, guillermo, and YOSI bandage. Will return tomorrow for dressing change. W ill plan future dressing changes and wound care according to appearance of foot/ulceration at dressing change tomorrow. Will continue to follow along in her care while she remains inpatient and will follow out-patient as well. Problem: Acute
--- NOTE | 2018-03-19 17:28 | PN ---
Subjective - Date and Time Seen Date: 03/19/18 Time: 15:09 Subjective Narrative: Sitting up comfortably in her chair by the bed. She states pain is well conolled, she has had no issues since arriving. She is tolerating PO. Her vitals are stable. Objective - Review of Systems Generalized/Overall Review: Denies: Chills, Fever EENTM: Reports: No Symptoms Reported Respiratory: Denies: Cough, Shortness of Breath Cardiac: Denies: Chest Pain, Edema, Palpitations Abdominal: Reports: No Symptoms Reported Genitourinary Symptoms: Reports: No Symptoms Reported Musculoskeletal Complaints: Reports: Joint Pain Skin: Reports: Other - chronic wounds of right foot, cellulitis of LLE (covered) - Vitals Vitals: Last Vital Signs Temp 36.5 C 03/19/18 14:38 Pulse 85 03/19/18 14:38 Resp 14 03/19/18 14:38 BP 104/63 03/19/18 14:38 Pulse Ox 94 03/19/18 14:38 - Abnormal Lab Findings Abnormal Lab Findings: Abnormal Lab Results 03/19/18 Range/Units 05:10 RBC 3.66 L (4.2-5.4) M/mm3 Hgb 9.8 L (12.5-16.0) gm/dL Hct 31.3 L (37.0-47.0) % MCH 26.8 L (27-31) pg MCHC 31.3 L (32-36) g/dl RDW 14.9 H (11.5-14.0) % - Exam Constitutional: Present: Alert, Oriented x3 ENT Exam: Present: hearing grossly normal Respiratory: Present: lungs clear, normal breath sounds Cardiovascular/Chest: Present: regular rate, rhythm, no edema Abdomen: Present: Normal bowel sounds, soft Skin Exam: Present: other - chronic ulcerations or RLE, BKA of LLE-dressing intact/clean/dry Appearance: Present: appropriate appearance, appropriate insight Thoughts: Present: normal thought pattern, normal mood /affect Assessment/Plan Plan Narrative: Day 2 s/p L BKA performed by Dr. Strong. Pain well controlled. Will stop vancomycin today and start clindamycin. She will go home on this for an additional 4 days to cover the chronic infection in her R foot (chronic wounds). Likely home tomorrow. Dr. Ramirez consulted to follow patients other foot infection. As for her IDDM continue high sliding scale with orders to have the nurse call me with sugars greater than 170. Continue home regimen for long acting. She is tolerating PO well, sugars ranging from 150-190. She did have an acute kidney injury which resolved, GFR back to baseline. Typed and crossed 1 unit earlier. H/H improved >9 following surgery. Stable Vitals stable, afebrile. - Problems/Diagnosis (1) S/P BKA (below knee amputation) Problem: Acute (2) Osteomyelitis Problem: Resolved Qualifiers: Osteomyelitis location: ankle Laterality: left (3) Septic arthritis of ankle or foot Problem: Resolved (4) Cellulitis of left lower extremity Problem: Acute (5) Insulin dependent diabetes mellitus Problem: Chronic (6) Anemia Problem: Chronic Qualifiers: Anemia type: unspecified type Qualified Code(s): D64.9 - Anemia, unspecified
[2018-03-19] MEDS: CLINDAMYCIN HCL 150 MG CAPSULE PO SCH (18:13)
[2018-03-19] MEDS: GABAPENTIN 600 MG TABLET PO SCH (22:05)
[2018-03-19] MEDS: SENNOSIDES/DOCUSATE SODIUM 1 TAB TABLET PO SCH (22:05)
[2018-03-20] MEDS: CLINDAMYCIN HCL 150 MG CAPSULE PO SCH ×3 (00:45→11:38)
[2018-03-20] MEDS: oxyCODONE HCL/ACETAMINOPHEN 1 TAB TABLET PO PRN ×2 (04:01→08:12)
[2018-03-20] MEDS ORDERED: VANCOMYCIN HCL LEVEL XX ONE (05:30)
[2018-03-20] MEDS: INSULIN REGULAR, HUMAN 100 UNITS/ML VIAL SC SCH ×2 (08:12→12:29)
[2018-03-20] MEDS: FAMOTIDINE 20 MG TABLET PO SCH (09:14)
[2018-03-20] MEDS: DULoxetine HCL 20 MG CAPSULE.SA PO SCH (09:14)
[2018-03-20] MEDS: ROSUVASTATIN CALCIUM 20 MG TABLET PO SCH (09:14)
[2018-03-20] MEDS: GABAPENTIN 300 MG CAPSULE PO SCH (09:15)
[2018-03-20] MEDS: busPIRone HCL 5 MG TABLET PO SCH (09:15)
[2018-03-20] MEDS: DOCUSATE SODIUM 100 MG CAPSULE PO SCH (09:15)
[2018-03-20] MEDS: INSULIN GLARGINE,HUM.REC.ANLOG 100 UNITS/ML VIAL SC SCH (09:18)
--- NOTE | 2018-03-20 09:24 | DS ---
(1) S/P BKA (below knee amputation) Problem: Acute (2) Osteomyelitis Problem: Resolved Qualifiers: Osteomyelitis location: ankle Laterality: left (3) Septic arthritis of ankle or foot Problem: Resolved (4) Cellulitis of left lower extremity Problem: Acute (5) Insulin dependent diabetes mellitus Problem: Chronic (6) Anemia Problem: Chronic Qualifiers: Anemia type: unspecified type Qualified Code(s): D64.9 - Anemia, unspe cified Description of Stay: Ms. Adhikari is a 47 year old CF who was admitted to the hospital after being diagnosed with osteomyelitis of her LLE. Ortho was consulted, patient underwent left lower BKA. She has done well following surgery, and was ready to be discharged today. Upon admission she was started on vancomycin and cipro. The day before discharge she was transitioned to clindamycin which she will go home on for another 6 days. She has been fighting a chronic wound/cellulitis of her RLE as well which is why she will need to continue to be on abx. Dr. Ramirez was consulted to help manage her chronic RLE infection. She was found to be anemic again, this is likely due to her chronic disease but will be worked up outpatient. She was transfused 1 unit which brought her H/H to above 9 prior to surgery. Repeat H/H before discharge was 9.8 She had a slight kidney injury that responded to fluids. Her creatinine and GFR returned to baseline on day 2. While here, her VS were stable and she has been afebrile. Her blood sugars have been stable for her, ranging from 150-190 when checked. She will follow up with me early next week. She will also follow up with Dr. Strong and Dr. Ramirez. Procedures Performed: see notes below List Procedures: LLE BKA Results and Findings: Pending Mircobiology Results 03/16/18 12:49 Blood Blood Culture - Preliminary NO GROWTH AFTER 48 HOURS 03/16/18 12:30 Blood Blood Culture - Preliminary NO GROWTH AFTER 48 HOURS Lab Pending Results 03/16/18 12:30: WBC 8.3, RBC 3.77 L, Hgb 9.8 L, Hct 31.6 L, MCV 83.8, MCH 26.0 L, MCHC 31.0 L, RDW 15.2 H, Plt Count 261, MPV 9.5, Immature Gran % (Auto) 0.20, Immature Gran # (Auto) 0.02, Neutrophils % 68.3, Lymphocytes % 23.1, Monocytes % 7.6, Eosinophils % 0.2, Basophils % 0.6, Nucleated RBC % 0.0, Neutrophils # 5.7, Lymphocytes # 1.92, Monocytes # 0.6, Eosinophils # 0.0, Absolute Basophils 0.1 03/16/18 12:30: ESR 118 H 03/16/18 12:30: Sodium 131 L, Plasma Sodium 131, Potassium 3.5, Chloride 95 L, Carbon Dioxide 27.2, Anion Gap 12.3, BUN 17, Creatinine 1.15, Est GFR (Non-Af Amer) 54 L D, BUN/Creatinine Ratio 14.8, Random Glucose 89, Calcium 9.4, Calcium Adj for Albumin 9.6, Total Bilirubin 0.6, AST 19, ALT 12 L, Alkaline Phosphatase 123, C-Reactive Prot, Quant 13.4 H, Total Protein 9.5 H, Albumin 3.4 03/16/18 12:30: Lactic Acid, Venous 1.0 03/17/18 05:10: WBC 5.5 D, RBC 3.06 L, Hgb 7.8 L* D, Hct 25.9 L, MCV 84.6, MCH 25.5 L, MCHC 30.1 L, RDW 15.2 H, Plt Count 195, MPV 10.1, Immature Gran % (Auto) 0.40, Immature Gran # (Auto) 0.02, Neutrophils % 66.4, Lymphocytes % 22.3, Monocytes % 9.1 H, Eosinophils % 1.3, Basophils % 0.5, Nucleated RBC % 0.0, Neutrophils # 3.7, Lymphocytes # 1.23 L, Monocytes # 0.5, Eosinophils # 0.1, Absolute Basophils 0.0 03/17/18 05:10: Sodium 133, Plasma Sodium 134, Potassium 3.4, Chloride 101, Carbon Dioxide 25.2, Anion Gap 10.2, BUN 13, Creatinine 0.82, Est GFR (Non-Af Amer) 80 D, BUN/Creatinine Ratio 15.9, Random Glucose 182 H D, Calcium 8.6, Calcium Adj for Albumin 9.4, Total Bilirubin 0.3, AST 16, ALT 8 L, Alkaline Phosphatase 105, Total Protein 7.5, Albumin 2.6 L 03/17/18 09:25: Blood Type O Positive, Antibody Screen Positive, Antibody Identification Inconclusive, Crossmatch See Detail 03/18/18 02:00: Hgb 8.8 L, Hct 28.0 L 03/18/18 02:00: Vancomycin Trough 9.8 L 03/18/18 05:40: WBC 5.7, RBC 3.48 L, Hgb 9.2 L, Hct 29.4 L, MCV 84.5, MCH 26.4 L, MCHC 31.3 L, RDW 14.7 H, Plt Count 238, MPV 9.8, Immature Gran % (Auto) 0.40, Immature Gran # (Auto) 0.02, Neutrophils % 55.0, Lymphocytes % 33.0, Monocytes % 8.3, Eosinophils % 2.8, Basophils % 0.5, Nucleated RBC % 0.0, Neutrophils # 3.1, Lymphocytes # 1.88, Monocytes # 0.5, Eosinophils # 0.2, Absolute Basophils 0.0 03/18/18 05:40: ESR 112 H 03/18/18 05:40: Sodium 139, Plasma Sodium 141, Potassium 3.6, Chloride 103, Carbon Dioxide 26.1, Anion Gap 13.5, BUN 10, Creatinine 0.84, Est GFR (Non-Af Am er) 78, BUN/Creatinine Ratio 11.9, Random Glucose 220 H, Calcium 8.8, Calcium Adj for Albumin 9.5, Total Bilirubin 0.3, AST 10, ALT 4 L, Alkaline Phosphatase 122, C-Reactive Prot, Quant 6.6 H, Total Protein 7.9, Albumin 2.7 L 03/18/18 14:09: Pathology Specimen Spec to path 03/18/18 15:56: Vancomycin Trough 11.9 03/19/18 05:10: WBC 7.8 D, RBC 3.66 L, Hgb 9.8 L, Hct 31.3 L, MCV 85.5, MCH 26.8 L, MCHC 31.3 L, RDW 14.9 H, Plt Count 270, MPV 9.3 03/19/18 05:10: Sodium 137, Plasma Sodium 137, Potassium 3.6, Chloride 101, Carbon Dioxide 27.8, Anion Gap 11.8, BUN 9, Creatinine 0.95, Est GFR (Non-Af Amer) 67, BUN/Creatinine Ratio 9.5, Random Glucose 81 D, Calcium 9.1 Discharge Location: Home Disposition: Home self-care Condition: Stable Discharge Activity: Other - non weight bearing on LLE Discharge Diet: Consistent carbs Referrals: Phill Stout DO [Primary Care Provider] - Additional Patient Instructions (free text): Please schedule an appointment for patient and her boyfriend for grief counseling at [facility] in [place] at . -Please make TCM appointment unless jail discharge. Thank you! Hui @ [phone]. Prescriptions (Any new or edited meds): Clindamycin HCl [Cleocin HCl] 300 mg PO TID #21 cap oxyCODONE HCL/ACETAMINOPHEN [Percocet 5 MG/325 MG] 2 tab PO QID PRN #90 tab PRN Reason: Pain Complete Home Medications List: Complete Home Medication List: atorvastatin 80 mg tablet 80 mg PO HS 11/27/17 gabapentin 300 mg capsule 300 mg PO BID@0800,1400 11/27/17 Gabapentin [Neurontin] 600 mg PO HS #0 11/28/17 buspirone 15 mg tablet 15 mg PO BID #60 tab 12/08/17 duloxetine 60 mg capsule,delayed release 60 mg PO BID #60 cap 12/08/17 ferrous fumarate 325 mg (106 mg iron) tablet 325 mg PO TID #45 tab 12/08/17 insulin aspart U- 100 100 unit/mL subcutaneous pen 1 unit SUB-Q ACHS #15 ml 12/08/17 Insulin Detemir [Levemir] 40 units SC QAM vial 02/02/18 Insulin Detemir [Levemir] 60 units SC HS vial 02/02/18 hydrocodone 5 mg-acetaminophen 325 mg tablet 1 tab PO TID-QID PRN #30 tab 02/05/18 Clindamycin HCl [Cleocin HCl] 300 mg PO TID #21 cap 03/20/18 oxyCODONE HCL/ACETAMINOPHEN [Percocet 5 MG/325 MG] 2 tab PO QID PRN #90 tab 03/20/18
--- NOTE | 2018-03-20 14:39 | PN ---
Subjective - Date and Time Seen Date: 03/20/18 Time: 14:37 Subjective Narrative: No complaints. She is sitting up in bed and states that she was able meet her goals with physical therapy. She reports some mild phantom pain. Tolerating breakfast. Objective - Vitals Vitals: Last Vital Signs Temp 36.7 C 03/20/18 11:00 Pulse 89 03/20/18 11:00 Resp 16 03/20/18 11:00 BP 109/57 03/20/18 11:00 Pulse Ox 94 03/20/18 11:00 - Exam Exam Narrative: Left lower extremity: Dressings changed, wound is benign, drain is removed, quarryman was applied Constitutional: Present: Alert, Oriented x3 Assessment/Plan - Problems/Diagnosis (1) Septic arthritis of ankle or foot Problem: Resolved (2) Cellulitis of left lower extremity Problem: Acute (3) Osteomyelitis Problem: Resolved Qualifiers: Osteomyelitis location: ankle Laterality: left (4) S/P below knee amputation Problem: Acute Qualifiers: Laterality: left Qualified Code(s): Z89.512 - Acquired absence of left leg below knee Narrative: She is okay for discharge from an orthopedic standpoint. Keep her wound dry, cover with dry gauze and quarryman changed every 2-3 days. I will see her back in approximately 2 weeks.
[2018-03-20 16:24] VITALS: BP 125/83
--- NOTE | 2018-03-20 16:30 | PN ---
Subjective - Date and Time Seen Date: 03/20/18 Time: 11:30 Subjective Narrative: Pt evaluated at bedside resting. Denies any pain in the right foot. Dressing has been kept CDI. Plan for d/c home today. Objective - Review of Systems Generalized/Overall Review: Denies: Chills, Fever Respiratory: Denies: Shortness of Breath Abdominal: Denies: Nausea, Vomiting Neurological: Reports: Numbness Skin: Reports: Other - ulceration right foot - Vitals Vitals: Last Vital Signs Temp 37.1 C 03/20/18 16:02 Pulse 97 03/20/18 16:02 Resp 16 03/20/18 16:02 BP 125/83 03/20/18 16:02 Pulse Ox 97 03/20/18 16:02 - Exam Constitutional: Present: Alert, Oriented x3, Cooperative Extremity: Present: lower extremity edema Skin Exam: Present: other - Ulceration to plantar medial right foot located sub 1st metatarsal head area that measures 0.5 x 0.5 x 0.4 cm. No tunneling or undermining. Loss of tissue to full thickness with exposure of subcutaneous fat layer. Base mostly red, granular. Surrounding tissue pink and intact following debridement yesterday. Scant serosanguinous drainage, no malodor. No exposed tendon or bone. Neurologic: Present: sensory deficit Appearance: Present: appropriate appearance Eye contact: Present: cooperative Assessment/Plan - Problems/Diagnosis (1) Chronic ulcer of right foot with fat layer exposed Problem: Chronic Narrative: Ulceration remains stable at this time. New dressing of Aquacel Ag, dry gauze, guillermo, and YOSI bandage applied. Pt to change dressing every other day at home. Instructions on dressing changes given to patient. I will plan follow up in the wound center on 03/24/18. Will call with appointment time. Educated on SOI and she is to seek medical attention immediately should any develop.
== END 2018-03-20 16:20 | disposition home or self-care (01) | DRG 464 ==
LOC: ER 11:21 → MS 11:21
PROVIDERS: ADMIT Family Medicine; ATTEND Family Medicine
DX: Z89.422 Acquired absence of other left toe(s); Z68.29 Body mass index [BMI] 29.0-29.9, adult; Z79.4 Long term (current) use of insulin; E86.0 Dehydration; F41.9 Anxiety disorder, unspecified; E13.649 Other specified diabetes mellitus with hypoglycemia without coma; Z88.1 Allergy status to other antibiotic agents; Z82.5 Family history of asthma and other chronic lower respiratory diseases; R50.9 Fever, unspecified; Z83.3 Family history of diabetes mellitus; E13.42 Other specified diabetes mellitus with diabetic polyneuropathy; Z82.49 Family history of ischemic heart disease and other diseases of the circulatory system; I25.2 Old myocardial infarction; L03.116 Cellulitis of left lower limb; E66.9 Obesity, unspecified; Z89.421 Acquired absence of other right toe(s); N17.9 Acute kidney failure, unspecified; Z86.14 Personal history of Methicillin resistant Staphylococcus aureus infection; Z91.19 Patient's noncompliance with other medical treatment and regimen; M86.172 Other acute osteomyelitis, left ankle and foot; K21.9 Gastro-esophageal reflux disease without esophagitis; L98.492 Non-pressure chronic ulcer of skin of other sites with fat layer exposed; Z95.5 Presence of coronary angioplasty implant and graft; E78.00 Pure hypercholesterolemia, unspecified; M00.9 Pyogenic arthritis, unspecified; D63.8 Anemia in other chronic diseases classified elsewhere; F32.9 Major depressive disorder, single episode, unspecified; R11.2 Nausea with vomiting, unspecified
CPT/HCPCS: 36415; 73610; 73723; 80048; 80053; 80202; 83605; 85014; 85018; 85025; 85027; 85652; 86140; 86850; 86870; 86900; 87040; 87081; 88305; 97110; 97116; 97161; 97165; 97530; J2405; P9016